=== PATIENT | male | born 1955 | race Caucasian/White ===

== ENCOUNTER 2017-08-09 13:00 | Outpatient (RCR) | payer OTHER, SELFPAY ==
--- NOTE | 2017-07-20 15:55 | PT.OTN ---
Current Diagnoses Pain in right shoulder (07/19/17) Physical Therapy Treatment Note PT-OP-A Visit Information Start: 07/20/17 15:42 Freq: Status: Active Protocol: Document 07/20/17 15:43 [facility] (Rec: 07/20/17 15:47 [facility] [email or web address]) Out-Patient Physical Therapy Visit Information Visit Information Visit Type Treatment Note Visit Start Time 11:30 Visit Stop Time 12:15 Total Visit Minutes 45 Visit Number 7 Number of OUTSOLE CASER Visits 0 PT-OP-C Subjective Start: 07/20/17 15:42 Freq: Status: Active Protocol: Document 07/20/17 15:43 [facility] (Rec: 07/20/17 15:47 [facility] [email or web address]) OP-PT Subjective Patient Comments Patient Comments Judi reports that his shoulder is continuing to get better and ROM has improved. He feels the most pinching at end range flexion with arms close together Patient Reported Progress Improving PT-OP-Q Treatments Start: 07/20/17 15:42 Freq: Status: Active Protocol: Document 07/20/17 15:43 [facility] (Rec: 07/20/17 15:47 [facility] [email or web address]) Cardio Equipment Upper Body Ergometer (UBE) Duration (Minutes) 5 RPM 110 Therapeutic Exercises Sidelying Exercises 1 Sidelying Exercise Name sleeper stretch Side left Standing Exercises 2 Standing Exercise Name posterior shoulder capsule stretch Side right 1 Standing Exercise Name wall slides with posterior capsule stretch Side right Manual Therapy Treatment Joint Mobilizations 2 Joint thoracic joint mobilizations Grade III Body Position Prone 1 Joint GH joint Grade III Body Position Supine Comments posterior, inferior and lateral capsule mobilizations Manual Techniques 1 Type manual end range stretching into ER and flexion Body Location right shoulder Body Position Supine PT-OP-T Assessment and Plan Start: 07/20/17 15:42 Freq: Status: Active Protocol: Document 07/19/17 15:49 [facility] (Rec: 07/20/17 15:52 [facility] [email or web address]) Physical Therapy Assessment Assessment Summary Assessment Judi is making good progress, he is still limited with IR and I emphasized the sleeper stretch and posterior capsule stretch for HEP, overall pain is decreased and ROM improved Physical Therapy Plan Frequency and Duration Frequency of Treatment Every Other Week Duration of Treatment 45 Plan of Care Start Date 05/17/17 Plan of Care End Date 08/14/17 Therapeutic Interventions Therapeutic Interventions Home Exercise Program Manual Therapy Self-Care/Home Management Soft Tissue Mobilization Therapeutic Exercises Next Visit Focus/Plan Next Visit Plan continue progressing posterior capsule stretching for improved ROM of the right shoulder
--- NOTE | 2017-08-09 14:13 | PT.OTN ---
Current Diagnoses Pain in right shoulder (08/09/17) Physical Therapy Treatment Note PT-OP-A Visit Information Start: 07/20/17 15:42 Freq: Status: Active Protocol: Document 08/09/17 14:00 [facility] (Rec: 08/09/17 14:12 [email or web address] Out-Patient Physical Therapy Visit Information Visit Information Visit Type Progress Note Visit Start Time 13:00 Visit Stop Time 13:40 Total Visit Minutes 40 Visit Number 8 PT-OP-C Subjective Start: 07/20/17 15:42 Freq: Status: Active Protocol: Document 08/09/17 14:00 [facility] (Rec: 08/09/17 14:12 [facility] [email or web address]) OP-PT Subjective Patient Comments Patient Comments Overall the shoulder is doing better but he still feels like some days he is set back or will be sore and others he has more ROM but overall motion has improved PT-OP-Q Treatments Start: 07/20/17 15:42 Freq: Status: Active Protocol: Document 08/09/17 14:00 [facility] (Rec: 08/09/17 14:12 [facility] [email or web address]) Cardio Equipment Upper Body Ergometer (UBE) Duration (Minutes) 5 RPM 110 Therapeutic Exercises Sitting Exercises 1 Sitting Exercise Name shoulder kitty with manual stretch of the capsule Comments posterior and inferior glide with active ROM Manual Therapy Treatment Soft Tissue Mobilization 1 Body Location subscapularis release Joint Mobilizations 2 Joint thoracic joint mobilizations Grade III Body Position Prone 1 Joint GH joint Grade III Body Position Supine Comments posterior, inferior and lateral capsule mobilizations Manual Techniques 1 Type manual end range stretching into ER and flexion Body Location right shoulder Body Position Supine PT-OP-T Assessment and Plan Start: 07/20/17 15:42 Freq: Status: Active Protocol: Document 08/09/17 14:00 [facility] (Rec: 08/09/17 14:12 [facility] [email or web address]) Physical Therapy Assessment Progress Towards Goals Progress Towards Goals Progressing Toward Goals Progress Comments Judi has made good progress towards his goals with shoulder ROM and improving flexiblity, His shoulder flexion improved from 90deg to 140 deg, abduction from 90 degrees to 130 deg, ER from 30 to 60 deg, IR from 20 to 55 deg. His flexibility of both the pectoralis and upper trapezius is much better overall. Strength is generally 5/5 MMT I feel he was dealing with adhesive capsulitis type symptoms and although his shoulder is not 100% improved it is much better. Judi will continue to work on his stretches and exercises and will follow up with his doctor should her need any additional care. Physical Therapy Plan Discharge Physical Therapy Discharge Comments Judi has made good gains with shoulder ROM and he is independent with a home program at this time to continue stretching Please Sign and Return: I have reviewed this Plan of Care and certify that the skilled therapy services above are required to meet the patient?s needs. Physician Signature Date Printed Name and Credentials Clinical Instructor Signature Printed Name and Credentials
== END 2017-08-23 15:53 ==
LOC: PHYS 13:00
PROVIDERS: Family Provider Family Medicine; PCP Family Medicine; Visit Provider Family Medicine
DX: M25.511 Pain in right shoulder (principal)
CPT/HCPCS: 97110; 97140

== ENCOUNTER → 2017-11-09 10:46 | Outpatient (CLI) | payer OTHER, SELFPAY | PROVIDERS: Family Provider Family Medicine; PCP Family Medicine; Visit Provider Family Medicine | DX: R20.2 Paresthesia of skin (principal) | CPT/HCPCS: 95886; 95909 ==

== ENCOUNTER 2018-01-30 10:30 | Outpatient (RCR) | payer OTHER, SELFPAY ==
--- NOTE | 2017-12-13 09:32 | PT.OIE ---
Current Diagnoses Dorsalgia, unspecified (12/12/17) Unspecified rotator cuff tear or rupture of right shoulder, not specified as traumatic (12/12/17) Paresthesia of skin (12/12/17) Provider Visit Care Team Role Provider Type Mahendra Love MD Family Provider Physician Primary Care Provider Specialty: [facility] Address: [address] [place] [address], [id number] Email: Kirk Coppola MD Attending Provider Physician Specialty: [facility] Address: [facility] [place], [address] Email: [email or web address] Physical Therapy Initial Evaluation PT-OP-A Visit Information Start: 12/13/17 09:04 Freq: Status: Active Protocol: Document 12/12/17 09:05 [facility] (Rec: 12/13/17 09:30 [facility] [email or web address]) Out-Patient Physical Therapy Visit Information Visit Information Visit Type Initial Evaluation Visit Start Time 11:15 Visit Stop Time 12:00 Total Visit Minutes 45 Visit Number 1 Evaluation Information Evaluation Date 12/12/17 PT-OP-B Current Condition Start: 12/13/17 09:04 Freq: Status: Active Protocol: Document 12/12/17 09:05 [facility] (Rec: 12/13/17 09:30 [facility] [email or web address]) Current Condition History of Current Condition Onset Date 2-3 months ago Current Complaints c/o radicular symptoms in the distal right arm and hand History of Current Condition Judi has previously been seen in PT for decreased shoulder ROM and stiffness. Treatment worked on improving thoracic mobility, stabilization of the shoulder and working on improved capsular mobility of the right shoulder. Judi reports after he was discharged from PT this past summer he continued to work on his stretches and he began noticing right sided tingling into his hand. He notes he will at times get tingling into his forearm as well. He did undergo a EMG nerve conduction test and this came back negative for any nerve damage. Treatment Goals Patient/Caregiver Goals to decrease radicular symptoms PT-OP-C Subjective Start: 12/13/17 09:04 Freq: Status: Active Protocol: Document 12/12/17 09:05 [facility] (Rec: 12/13/17 09:30 [facility] [email or web address]) OP-PT Pain Assessment Location Right Neck Pain Location Details R c-spine and R superior border of scapula Intensity 3 Scale Used Numeric (1 - 10) PT-OP-F Manual Assessment Start: 12/13/17 09:04 Freq: Status: Active Protocol: Document 12/12/17 09:05 [facility] (Rec: 12/13/17 09:30 [facility] [email or web address]) Manual Assessments Soft Tissue Assessment Soft Tissue Mobility Assessment Judi has a great deal of tightness bilaterally in the upper trapezius and scalenes, he has right greater than left tightness in the SCM and pectoralis musculature. Palpation at the first rib on the right reproduces his radicular symptoms Joint Mobility Assessment Joint Mobility Assessment hypomobility of the upper thoracic and lower cervical spine, hyper mobility of the C4-5 joint. Palpation at the right C5 facet joint reproduces symptoms into the right hand PT-OP-J Posture/Palpation/Skin Start: 12/13/17 09:04 Freq: Status: Active Protocol: Document 12/12/17 09:05 [facility] (Rec: 12/13/17 09:30 [facility] [email or web address]) Posture Evaluation Position Standing Head/C-Spine Posture Excess Extension Comments Posture Comments Judi tends to hold his head in slight cervical extension at the C4-5 joint PT-OP-K Range of Motion Start: 12/13/17 09:04 Freq: Status: Active Protocol: Document 12/12/17 09:05 [facility] (Rec: 12/13/17 09:30 [facility] [email or web address]) Cervical Spine Range of Motion Cervical Spine Active Testing Position Sitting Flexion 60 Extension 20 Rotation Left 40 Rotation Right 50 Lateral Flexion Left 10 Lateral Flexion Right 10 PT-OP-L Special Tests Start: 12/13/17 09:31 Freq: Status: Active Protocol: Document 12/12/17 09:31 [facility] (Rec: 12/13/17 09:32 [facility] [email or web address]) Special Tests Cervical Spine Special Tests Upper Limb Tension Test Test Results + ULTT 1 and 3 for median and radial nerve tightness on the Right PT-OP-Q Treatments Start: 12/13/17 09:04 Freq: Status: Active Protocol: Document 12/12/17 09:05 [facility] (Rec: 12/13/17 09:30 [facility] [email or web address]) Therapeutic Exercises Supine Exercises 2 Supine Exercise Name cervical retraction in supine and sitting 1 Supine Exercise Name suboccipital release for home with two tennis balls Reps/Minutes 2-3 minutes PT-OP-T Assessment and Plan Start: 12/13/17 09:04 Freq: Status: Active Protocol: Document 12/12/17 09:05 [facility] (Rec: 12/13/17 09:30 [facility] [email or web address]) Physical Therapy Assessment Goals Four Impairment radicular symptoms into the right hand and forearm Halfway Goal (LTG) With manual therapy techniques , cervical traction and a exercise program Judi notes a overall reduction in his radicular symptoms into his right forearm and hand. LTG Duration 8 weeks Three Impairment + ULTT 1 and 3 on the right for median and radial nerve Halfway Goal (LTG) improve nerve mobility and Judi has a negative ULTT on the right as compared to the left LTG Duration 8 weeks Two Impairment myofascial restrictions throughout the suboccipitals, upper trapezius, SCM Sales Service Rep Goal (LTG) Improve mobility of the musculature of the cervical and thoracic spine to decrease compression of the nerve reducing radicular symptoms LTG Duration 8 weeks One Impairment increased cervical extension at C4-5 Short Term Goal (STG) Judi is educated on his posture with increased cervical extension and is educated in a chin retraction exercise especially when using his bifocals as he tends to tilt his chin forward to look through his glasses STG Duration 6 weeks Assessment Summary Assessment Judi returns to PT today with new symptoms of right sided radicular pain into the right superior border of the scapula and intermittent tingling into his right hand and forearm. His symptoms in the scapula seem to be dermatome related from C4-5 region on the right. I was able to reproduce his hand symptoms with both palpation to the C4-5 on the right as well as a first rib mobilization. He is very tight in his myofascial tissue in the neck region and he may have some thoracic outlet type symptoms. He may benefit from a trial of home traction, manual therapy to reduce tension in the neck, and exercises to reduce the cervical extension at C4-5 region. He may also benefit from regular deep tissue massage as he tends to carry a great deal of tightness in his neck and upp back region. I will send over a referral for a home rental cervical traction unit. Physical Therapy Plan Frequency and Duration Frequency of Treatment 2x/Week Duration of Treatment 8 weeks Plan of Care Start Date 12/12/17 Plan of Care End Date 02/06/18 Therapeutic Interventions Therapeutic Interventions Home Exercise Program Joint Mobilizations Manual Therapy Patient/Caregiver Education Self-Care/Home Management Soft Tissue Mobilization Therapeutic Exercises
--- NOTE | 2017-12-13 09:37 | PT.OIE ---
Current Diagnoses Dorsalgia, unspecified (12/12/17) Unspecified rotator cuff tear or rupture of right shoulder, not specified as traumatic (12/12/17) Paresthesia of skin (12/12/17) Provider Visit Care Team Role Provider Type Mahendra Love MD Family Provider Physician Primary Care Provider Specialty: [facility] Address: [address] [place] [address], [id number] Email: Kirk Coppola MD Attending Provider Physician Specialty: [facility] Address: [facility] [place], [address] Email: [email or web address] Physical Therapy Initial Evaluation PT-OP-A Visit Information Start: 12/13/17 09:04 Freq: Status: Active Protocol: Document 12/12/17 09:05 [facility] (Rec: 12/13/17 09:30 [facility] [email or web address]) Out-Patient Physical Therapy Visit Information Visit Information Visit Type Initial Evaluation Visit Start Time 11:15 Visit Stop Time 12:00 Total Visit Minutes 45 Visit Number 1 Evaluation Information Evaluation Date 12/12/17 PT-OP-B Current Condition Start: 12/13/17 09:04 Freq: Status: Active Protocol: Document 12/12/17 09:05 [facility] (Rec: 12/13/17 09:30 [facility] [email or web address]) Current Condition History of Current Condition Onset Date 2-3 months ago Current Complaints c/o radicular symptoms in the distal right arm and hand History of Current Condition Judi has previously been seen in PT for decreased shoulder ROM and stiffness. Treatment worked on improving thoracic mobility, stabilization of the shoulder and working on improved capsular mobility of the right shoulder. Judi reports after he was discharged from PT this past summer he continued to work on his stretches and he began noticing right sided tingling into his hand. He notes he will at times get tingling into his forearm as well. He did undergo a EMG nerve conduction test and this came back negative for any nerve damage. Treatment Goals Patient/Caregiver Goals to decrease radicular symptoms PT-OP-C Subjective Start: 12/13/17 09:04 Freq: Status: Active Protocol: Document 12/12/17 09:05 [facility] (Rec: 12/13/17 09:30 [facility] [email or web address]) OP-PT Pain Assessment Location Right Neck Pain Location Details R c-spine and R superior border of scapula Intensity 3 Scale Used Numeric (1 - 10) PT-OP-F Manual Assessment Start: 12/13/17 09:04 Freq: Status: Active Protocol: Document 12/12/17 09:05 [facility] (Rec: 12/13/17 09:30 [facility] [email or web address]) Manual Assessments Soft Tissue Assessment Soft Tissue Mobility Assessment Judi has a great deal of tightness bilaterally in the upper trapezius and scalenes, he has right greater than left tightness in the SCM and pectoralis musculature. Palpation at the first rib on the right reproduces his radicular symptoms Joint Mobility Assessment Joint Mobility Assessment hypomobility of the upper thoracic and lower cervical spine, hyper mobility of the C4-5 joint. Palpation at the right C5 facet joint reproduces symptoms into the right hand PT-OP-J Posture/Palpation/Skin Start: 12/13/17 09:04 Freq: Status: Active Protocol: Document 12/12/17 09:05 [facility] (Rec: 12/13/17 09:30 [facility] [email or web address]) Posture Evaluation Position Standing Head/C-Spine Posture Excess Extension Comments Posture Comments Judi tends to hold his head in slight cervical extension at the C4-5 joint PT-OP-K Range of Motion Start: 12/13/17 09:04 Freq: Status: Active Protocol: Document 12/12/17 09:05 [facility] (Rec: 12/13/17 09:30 [facility] [email or web address]) Cervical Spine Range of Motion Cervical Spine Active Testing Position Sitting Flexion 60 Extension 20 Rotation Left 40 Rotation Right 50 Lateral Flexion Left 10 Lateral Flexion Right 10 PT-OP-L Special Tests Start: 12/13/17 09:31 Freq: Status: Active Protocol: Document 12/12/17 09:31 [facility] (Rec: 12/13/17 09:32 [facility] [email or web address]) Special Tests Cervical Spine Special Tests Upper Limb Tension Test Test Results + ULTT 1 and 3 for median and radial nerve tightness on the Right PT-OP-Q Treatments Start: 12/13/17 09:04 Freq: Status: Active Protocol: Document 12/12/17 09:05 [facility] (Rec: 12/13/17 09:30 [facility] [email or web address]) Therapeutic Exercises Supine Exercises 2 Supine Exercise Name cervical retraction in supine and sitting 1 Supine Exercise Name suboccipital release for home with two tennis balls Reps/Minutes 2-3 minutes PT-OP-T Assessment and Plan Start: 12/13/17 09:04 Freq: Status: Active Protocol: Document 12/12/17 09:05 [facility] (Rec: 12/13/17 09:30 [facility] [email or web address]) Physical Therapy Assessment Goals Four Impairment radicular symptoms into the right hand and forearm Long-Term Goal (LTG) With manual therapy techniques , cervical traction and a exercise program Judi notes a overall reduction in his radicular symptoms into his right forearm and hand. LTG Duration 8 weeks Three Impairment + ULTT 1 and 3 on the right for median and radial nerve Long-Term Goal (LTG) improve nerve mobility and Judi has a negative ULTT on the right as compared to the left LTG Duration 8 weeks Two Impairment myofascial restrictions throughout the suboccipitals, upper trapezius, SCM Director Translation Goal (LTG) Improve mobility of the musculature of the cervical and thoracic spine to decrease compresssion of the nerve reducing radicular symptoms LTG Duration 8 weeks One Impairment increased cervical extension at C4-5 Short Term Goal (STG) Judi is educated on his posture with increased cervical extension and is educated in a chin retraction exercise especially when using his bifocals as he tends to tilt his chin forward to look through his glasses STG Duration 6 weeks Assessment Summary Assessment Judi returns to PT today with new symptoms of right sided radicular pain into the right superior border of the scapula and intermitent tingling into his right hand and forearm. His symptoms in the scapula seem to be dermatome related from C4-5 region on the right. I was able to reproduce his hand symptoms with both palpation to the C4-5 on the right as well as a first rib mobilization. He is very tight in his myofascial tissue in the neck region and he may have some thoracic outlet type symptoms. He may benefit from a trial of home traction, manual therapy to reduce tension in the neck, and exercises to reduce the cervical extension at C4-5 region. We did do a trial of cervical traction at 20# and Judi tolerated this well. He may also benefit from regular deep tissue massage as he tends to carry a great deal of tightness in his neck and upp back region. I will send over a referral for a home rental cervical traction unit. Physical Therapy Plan Frequency and Duration Frequency of Treatment 2x/Week Duration of Treatment 8 weeks Plan of Care Start Date 12/12/17 Plan of Care End Date 02/06/18 Therapeutic Interventions Therapeutic Interventions Home Exercise Program Joint Mobilizations Manual Therapy Patient/Caregiver Education Self-Care/Home Management Soft Tissue Mobilization Therapeutic Exercises
--- NOTE | 2017-12-22 15:00 | PT.OTN ---
Current Diagnoses Dorsalgia, unspecified (12/22/17) Unspecified rotator cuff tear or rupture of right shoulder, not specified as traumatic (12/22/17) Paresthesia of skin (12/22/17) Physical Therapy Treatment Note PT-OP-A Visit Information Start: 12/13/17 09:04 Freq: Status: Active Protocol: Document 12/22/17 14:37 SA (Rec: 12/22/17 14:55 [facility] [email or web address]) Out-Patient Physical Therapy Visit Information Visit Information Visit Type Treatment Note Visit Start Time 09:45 Visit Stop Time 10:31 Total Visit Minutes 46 Visit Number 2 PT-OP-B Current Condition Start: 12/13/17 09:04 Freq: Status: Active Protocol: Document 12/12/17 09:05 [facility] (Rec: 12/13/17 09:30 [facility] [email or web address]) Current Condition History of Current Condition Onset Date 2-3 months ago Current Complaints c/o radicular symptoms in the distal right arm and hand History of Current Condition Judi has previously been seen in PT for decreased shoulder ROM and stiffness. Treatment worked on improving thoracic mobility, stabilization of the shoulder and working on improved capsular mobility of the right shoulder. Judi reports after he was discharged from PT this past summer he continued to work on his stretches and he began noticing right sided tingling into his hand. He notes he will at times get tingling into his forearm as well. He did undergo a EMG nerve conduction test and this came back negative for any nerve damage. Treatment Goals Patient/Caregiver Goals to decrease radicular symptoms PT-OP-C Subjective Start: 12/13/17 09:04 Freq: Status: Active Protocol: Document 12/22/17 14:37 SA (Rec: 12/22/17 14:55 [facility] [email or web address]) OP-PT Subjective Patient Comments Patient Comments Pt still having R scapular/ shoulder pain. OP-PT Pain Assessment Location Right Neck Pain Location Details R c-spine/Interscap and superior border Intensity 3 Scale Used Numeric (1 - 10) PT-OP-F Manual Assessment Start: 12/13/17 09:04 Freq: Status: Active Protocol: Document 12/12/17 09:05 [facility] (Rec: 12/13/17 09:30 [facility] [email or web address]) Manual Assessments Soft Tissue Assessment Soft Tissue Mobility Assessment Judi has a great deal of tightness bilaterally in the upper trapezius and scalenes, he has right greater than left tightness in the SCM and pectoralis musculature. Palpation at the first rib on the right reproduces his radicular symptoms Joint Mobility Assessment Joint Mobility Assessment hypomobility of the upper thoracic and lower cervical spine, hyper mobility of the C4-5 joint. Palpation at the right C5 facet joint reproduces symptoms into the right hand PT-OP-J Posture/Palpation/Skin Start: 12/13/17 09:04 Freq: Status: Active Protocol: Document 12/12/17 09:05 [facility] (Rec: 12/13/17 09:30 [facility] [email or web address]) Posture Evaluation Position Standing Head/C-Spine Posture Excess Extension Comments Posture Comments Judi tends to hold his head in slight cervical extension at the C4-5 joint PT-OP-K Range of Motion Start: 12/13/17 09:04 Freq: Status: Active Protocol: Document 12/12/17 09:05 [facility] (Rec: 12/13/17 09:30 [facility] [email or web address]) Cervical Spine Range of Motion Cervical Spine Active Testing Position Sitting Flexion 60 Extension 20 Rotation Left 40 Rotation Right 50 Lateral Flexion Left 10 Lateral Flexion Right 10 PT-OP-L Special Tests Start: 12/13/17 09:31 Freq: Status: Active Protocol: Document 12/12/17 09:31 [facility] (Rec: 12/13/17 09:32 [facility] [email or web address]) Special Tests Cervical Spine Special Tests Upper Limb Tension Test Test Results + ULTT 1 and 3 for median and radial nerve tightness on the Right PT-OP-Q Treatments Start: 12/13/17 09:04 Freq: Status: Active Protocol: Document 12/22/17 14:37 SA (Rec: 12/22/17 14:55 [facility] [email or web address]) Therapeutic Exercises Sitting Exercises Upper Trap stretching Side bilateral Reps/Minutes 30 seconds x 3 Seated cervical retraction Reps/Minutes 20 Manual Therapy Treatment Soft Tissue Mobilization STM to R upper traps, scalenes, Interscapular area Mobilization Type Myofascial Release Rolling Trigger Point Release Intensity/Depth Moderate Body Position Sidelying Manual Traction cervical traction Details c spine Body Position Supine Comments Pt tolerated well, prefers manual tracteion vs mechanical . PROM to c-spine with L rotation and sidebend relieving R redicualar symptoms. PT-OP-T Assessment and Plan Start: 12/13/17 09:04 Freq: Status: Active Protocol: Document 12/22/17 14:55 SA (Rec: 12/22/17 14:59 [facility] [email or web address]) Physical Therapy Plan Frequency and Duration Frequency of Treatment 2x/Week Next Visit Focus/Plan Next Note Type Treatment Note Next Visit Plan Assess pt response to Upper trap stretching, chin tucks and cervical traction. Handout /education provided for work station set up/ergonomic to help minimize impingment positioning. Review of correct posture.
--- NOTE | 2018-01-10 11:07 | PT.OTN ---
Current Diagnoses Dorsalgia, unspecified (01/10/18) Unspecified rotator cuff tear or rupture of right shoulder, not specified as traumatic (01/10/18) Paresthesia of skin (01/10/18) Physical Therapy Treatment Note PT-OP-A Visit Information Start: 12/13/17 09:04 Freq: Status: Active Protocol: Document 01/10/18 11:00 [facility] (Rec: 01/10/18 11:06 [facility] [email or web address]) Out-Patient Physical Therapy Visit Information Visit Information Visit Type Treatment Note Visit Start Time 10:00 Visit Stop Time 10:55 Total Visit Minutes 55 Visit Number 3 Number of BRAZER INDUCTION Visits 0 Evaluation Information Evaluation Date 12/12/17 PT-OP-B Current Condition Start: 12/13/17 09:04 Freq: Status: Active Protocol: Document 12/12/17 09:05 [facility] (Rec: 12/13/17 09:30 [facility] [email or web address]) Current Condition History of Current Condition Onset Date 2-3 months ago Current Complaints c/o radicular symptoms in the distal right arm and hand History of Current Condition Judi has previously been seen in PT for decreased shoulder ROM and stiffness. Treatment worked on improving thoracic mobility, stabilization of the shoulder and working on improved capsular mobility of the right shoulder. Judi reports after he was discharged from PT this past summer he continued to work on his stretches and he began noticing right sided tingling into his hand. He notes he will at times get tingling into his forearm as well. He did undergo a EMG nerve conduction test and this came back negative for any nerve damage. Treatment Goals Patient/Caregiver Goals to decrease radicular symptoms PT-OP-C Subjective Start: 12/13/17 09:04 Freq: Status: Active Protocol: Document 01/10/18 11:00 [facility] (Rec: 01/10/18 11:06 [facility] [email or web address]) OP-PT Subjective Patient Comments Patient Comments Judi notes symptoms are a little better and he has been working a lot on stretching. It helped to have work done on the right scapula region last time PT-OP-F Manual Assessment Start: 12/13/17 09:04 Freq: Status: Active Protocol: Document 12/12/17 09:05 [facility] (Rec: 12/13/17 09:30 [facility] [email or web address]) Manual Assessments Soft Tissue Assessment Soft Tissue Mobility Assessment Judi has a great deal of tightness bilaterally in the upper trapezius and scalenes, he has right greater than left tightness in the SCM and pectoralis musculature. Palpation at the first rib on the right reproduces his radicular symptoms Joint Mobility Assessment Joint Mobility Assessment hypomobility of the upper thoracic and lower cervical spine, hyper mobility of the C4-5 joint. Palpation at the right C5 facet joint reproduces symptoms into the right hand PT-OP-J Posture/Palpation/Skin Start: 12/13/17 09:04 Freq: Status: Active Protocol: Document 12/12/17 09:05 [facility] (Rec: 12/13/17 09:30 [facility] [email or web address]) Posture Evaluation Position Standing Head/C-Spine Posture Excess Extension Comments Posture Comments Judi tends to hold his head in slight cervical extension at the C4-5 joint PT-OP-K Range of Motion Start: 12/13/17 09:04 Freq: Status: Active Protocol: Document 12/12/17 09:05 [facility] (Rec: 12/13/17 09:30 [facility] [email or web address]) Cervical Spine Range of Motion Cervical Spine Active Testing Position Sitting Flexion 60 Extension 20 Rotation Left 40 Rotation Right 50 Lateral Flexion Left 10 Lateral Flexion Right 10 PT-OP-L Special Tests Start: 12/13/17 09:31 Freq: Status: Active Protocol: Document 12/12/17 09:31 [facility] (Rec: 12/13/17 09:32 [facility] [email or web address]) Special Tests Cervical Spine Special Tests Upper Limb Tension Test Test Results + ULTT 1 and 3 for median and radial nerve tightness on the Right PT-OP-Q Treatments Start: 12/13/17 09:04 Freq: Status: Active Protocol: Document 01/10/18 11:00 [facility] (Rec: 01/10/18 11:06 [facility] [email or web address]) Manual Therapy Treatment Soft Tissue Mobilization STM to R upper traps, scalenes, Interscapular area Mobilization Type Myofascial Release Rolling Trigger Point Release Intensity/Depth Moderate Body Position Sidelying 1 Body Location subscapularis release Joint Mobilizations 2 Joint thoracic joint mobilizations Grade III Body Position Prone Manual Traction cervical traction Details c spine Body Position Supine Comments Pt tolerated well, prefers manual traction vs mechanical. Decrased radicular symptoms following Manual Techniques 1 Type suboccipital release PT-OP-R Modalities Start: 01/10/18 11:06 Freq: Status: Active Protocol: Document 11/07/18 11:06 [facility] (Rec: 01/10/18 11:07 [facility] [email or web address]) Ultrasound Therapy Treatment Right Medial Back Applicator Size (cm2) 5 Mode Setting Continuous Duty Cycle 100% Intensity Setting (w/cm2) 1.5 Comments right medial scapula border and levator scapula attachment PT-OP-T Assessment and Plan Start: 12/13/17 09:04 Freq: Status: Active Protocol: Document 01/10/18 11:00 [facility] (Rec: 01/10/18 11:06 [facility] [email or web address]) Physical Therapy Assessment Assessment Summary Assessment Good tolerance today for manual work and decreasing radicular symptoms following manual work. Improved mobility with ULTT 1 and 3, tightness along the medial scapula border and T-spine Physical Therapy Plan Frequency and Duration Frequency of Treatment 2x/Week Duration of Treatment 8 weeks Plan of Care Start Date 12/12/17 Plan of Care End Date 02/06/18 Therapeutic Interventions Therapeutic Interventions Home Exercise Program Joint Mobilizations Manual Therapy Patient/Caregiver Education Self-Care/Home Management Soft Tissue Mobilization Therapeutic Exercises Next Visit Focus/Plan Next Note Type Treatment Note Next Visit Plan continue to work on improved thoracic mobility as Judi can tolerate. Possible trial of home traction rental unit.
--- NOTE | 2018-01-16 12:44 | PT.OTN ---
Current Diagnoses Dorsalgia, unspecified (01/16/18) Unspecified rotator cuff tear or rupture of right shoulder, not specified as traumatic (01/16/18) Paresthesia of skin (01/16/18) Physical Therapy Treatment Note PT-OP-A Visit Information Start: 12/13/17 09:04 Freq: Status: Active Protocol: Document 01/16/18 12:37 [facility] (Rec: 01/16/18 12:44 [facility] [email or web address]) Out-Patient Physical Therapy Visit Information Visit Information Visit Type Treatment Note Visit Start Time 09:00 Visit Stop Time 09:45 Total Visit Minutes 55 Visit Number 4 Number of SCOOP DRIVER Visits 0 PT-OP-B Current Condition Start: 12/13/17 09:04 Freq: Status: Active Protocol: Document 12/12/17 09:05 [facility] (Rec: 12/13/17 09:30 [facility] [email or web address]) Current Condition History of Current Condition Onset Date 2-3 months ago Current Complaints c/o radicular symptoms in the distal right arm and hand History of Current Condition Judi has previously been seen in PT for decreased shoulder ROM and stiffness. Treatment worked on improving thoracic mobility, stabilization of the shoulder and working on improved capsular mobility of the right shoulder. Judi reports after he was discharged from PT this past summer he continued to work on his stretches and he began noticing right sided tingling into his hand. He notes he will at times get tingling into his forearm as well. He did undergo a EMG nerve conduction test and this came back negative for any nerve damage. Treatment Goals Patient/Caregiver Goals to decrease radicular symptoms PT-OP-C Subjective Start: 12/13/17 09:04 Freq: Status: Active Protocol: Document 01/16/18 12:37 [facility] (Rec: 01/16/18 12:44 [facility] [email or web address]) OP-PT Subjective Patient Comments Patient Comments Judi reports he did better following last visit and felt much looser. He is still feeling the tingling down his right hand but it is not as bad as it was Patient Reported Progress Improving PT-OP-F Manual Assessment Start: 12/13/17 09:04 Freq: Status: Active Protocol: Document 12/12/17 09:05 [facility] (Rec: 12/13/17 09:30 [facility] [email or web address]) Manual Assessments Soft Tissue Assessment Soft Tissue Mobility Assessment Judi has a great deal of tightness bilaterally in the upper trapezius and scalenes, he has right greater than left tightness in the SCM and pectoralis musculature. Palpation at the first rib on the right reproduces his radicular symptoms Joint Mobility Assessment Joint Mobility Assessment hypomobility of the upper thoracic and lower cervical spine, hyper mobility of the C4-5 joint. Palpation at the right C5 facet joint reproduces symptoms into the right hand PT-OP-J Posture/Palpation/Skin Start: 12/13/17 09:04 Freq: Status: Active Protocol: Document 12/12/17 09:05 [facility] (Rec: 12/13/17 09:30 [facility] [email or web address]) Posture Evaluation Position Standing Head/C-Spine Posture Excess Extension Comments Posture Comments uJdi tends to hold his head in slight cervical extension at the C4-5 joint PT-OP-K Range of Motion Start: 12/13/17 09:04 Freq: Status: Active Protocol: Document 12/12/17 09:05 [facility] (Rec: 12/13/17 09:30 [facility] [email or web address]) Cervical Spine Range of Motion Cervical Spine Active Testing Position Sitting Flexion 60 Extension 20 Rotation Left 40 Rotation Right 50 Lateral Flexion Left 10 Lateral Flexion Right 10 PT-OP-L Special Tests Start: 12/13/17 09:31 Freq: Status: Active Protocol: Document 12/12/17 09:31 [facility] (Rec: 12/13/17 09:32 [facility] [email or web address]) Special Tests Cervical Spine Special Tests Upper Limb Tension Test Test Results + ULTT 1 and 3 for median and radial nerve tightness on the Right PT-OP-Q Treatments Start: 12/13/17 09:04 Freq: Status: Active Protocol: Document 01/16/18 12:37 [facility] (Rec: 01/16/18 12:44 [facility] [email or web address]) Manual Therapy Treatment Soft Tissue Mobilization STM to R upper traps, scalenes, Interscapular area Mobilization Type Myofascial Release Rolling Trigger Point Release Intensity/Depth Moderate Body Position Sidelying 1 Body Location subscapularis release Joint Mobilizations 2 Joint thoracic joint mobilizations Grade III Body Position Prone Manual Traction cervical traction Details c spine Body Position Supine Comments Pt tolerated well, prefers manual traction vs mechanical. Decrased radicular symptoms following Manual Techniques 1 Type suboccipital release PT-OP-R Modalities Start: 01/10/18 11:06 Freq: Status: Active Protocol: Document 01/10/18 11:06 [facility] (Rec: 01/10/18 11:07 [facility] [email or web address]) Ultrasound Therapy Treatment Right Medial Back Applicator Size (cm2) 5 Mode Setting Continuous Duty Cycle 100% Intensity Setting (w/cm2) 1.5 Comments right medial scapula border and levator scapula attachment PT-OP-T Assessment and Plan Start: 12/13/17 09:04 Freq: Status: Active Protocol: Document 01/16/18 12:37 [facility] (Rec: 01/16/18 12:44 [facility] [email or web address]) Physical Therapy Assessment Assessment Summary Assessment Judi is responding well to treatment and had improved thoracic mobility today. He is also gaining flexibility in the right pectoralis musculature Physical Therapy Plan Frequency and Duration Frequency of Treatment 2x/Week Duration of Treatment 8 weeks Plan of Care Start Date 12/12/17 Plan of Care End Date 02/06/18 Therapeutic Interventions Therapeutic Interventions Home Exercise Program Joint Mobilizations Manual Therapy Patient/Caregiver Education Self-Care/Home Management Soft Tissue Mobilization Therapeutic Exercises Next Visit Focus/Plan Next Note Type Treatment Note Next Visit Plan continue to work on nerve gliding and thoracic mobility, manual traction Judi tolerates well. Work station set up as he notes after using his mouse he can have carple tunnel symptoms
--- NOTE | 2018-01-24 13:48 | PT.OTN ---
Current Diagnoses Dorsalgia, unspecified (01/24/18) Unspecified rotator cuff tear or rupture of right shoulder, not specified as traumatic (01/24/18) Paresthesia of skin (01/24/18) Physical Therapy Treatment Note PT-OP-A Visit Information Start: 12/13/17 09:04 Freq: Status: Active Protocol: Document 01/24/18 13:40 [facility] (Rec: 01/24/18 13:48 [facility] [email or web address]) Out-Patient Physical Therapy Visit Information Visit Information Visit Type Treatment Note Visit Start Time 10:45 Visit Stop Time 11:30 Total Visit Minutes 45 Visit Number 5 Number of SPECK DYER Visits 0 Evaluation Information Evaluation Date 12/12/17 PT-OP-B Current Condition Start: 12/13/17 09:04 Freq: Status: Active Protocol: Document 12/12/17 09:05 [facility] (Rec: 12/13/17 09:30 [facility] [email or web address]) Current Condition History of Current Condition Onset Date 2-3 months ago Current Complaints c/o radicular symptoms in the distal right arm and hand History of Current Condition Judi has previously been seen in PT for decreased shoulder ROM and stiffness. Treatment worked on improving thoracic mobility, stabilization of the shoulder and working on improved capsular mobility of the right shoulder. Judi reports after he was discharged from PT this past summer he continued to work on his stretches and he began noticing right sided tingling into his hand. He notes he will at times get tingling into his forearm as well. He did undergo a EMG nerve conduction test and this came back negative for any nerve damage. Treatment Goals Patient/Caregiver Goals to decrease radicular symptoms PT-OP-C Subjective Start: 12/13/17 09:04 Freq: Status: Active Protocol: Document 01/24/18 13:40 [facility] (Rec: 01/24/18 13:48 [facility] [email or web address]) OP-PT Subjective Patient Comments Patient Comments Judi reports he is doing better, decreasing c/o right sided radicular symptoms. Had a deep tissue massage too and notes this helped as well. Patient Reported Progress Improving PT-OP-F Manual Assessment Start: 12/13/17 09:04 Freq: Status: Active Protocol: Document 12/12/17 09:05 [facility] (Rec: 12/13/17 09:30 [facility] [email or web address]) Manual Assessments Soft Tissue Assessment Soft Tissue Mobility Assessment Judi has a great deal of tightness bilaterally in the upper trapezius and scalenes, he has right greater than left tightness in the SCM and pectoralis musculature. Palpation at the first rib on the right reproduces his radicular symptoms Joint Mobility Assessment Joint Mobility Assessment hypomobility of the upper thoracic and lower cervical spine, hyper mobility of the C4-5 joint. Palpation at the right C5 facet joint reproduces symptoms into the right hand PT-OP-J Posture/Palpation/Skin Start: 12/13/17 09:04 Freq: Status: Active Protocol: Document 12/12/17 09:05 [facility] (Rec: 12/13/17 09:30 [facility] [email or web address]) Posture Evaluation Position Standing Head/C-Spine Posture Excess Extension Comments Posture Comments Judi tends to hold his head in slight cervical extension at the C4-5 joint PT-OP-K Range of Motion Start: 12/13/17 09:04 Freq: Status: Active Protocol: Document 12/12/17 09:05 [facility] (Rec: 12/13/17 09:30 [facility] [email or web address]) Cervical Spine Range of Motion Cervical Spine Active Testing Position Sitting Flexion 60 Extension 20 Rotation Left 40 Rotation Right 50 Lateral Flexion Left 10 Lateral Flexion Right 10 PT-OP-L Special Tests Start: 12/13/17 09:31 Freq: Status: Active Protocol: Document 12/12/17 09:31 [facility] (Rec: 12/13/17 09:32 [facility] [email or web address]) Special Tests Cervical Spine Special Tests Upper Limb Tension Test Test Results + ULTT 1 and 3 for median and radial nerve tightness on the Right PT-OP-Q Treatments Start: 12/13/17 09:04 Freq: Status: Active Protocol: Document 01/24/18 13:40 [facility] (Rec: 01/24/18 13:48 [facility] [email or web address]) Therapeutic Exercises Supine Exercises 3 Supine Exercise Name foam roll stretch Prone Exercises 1 Prone Exercise Name prone thoracic extension with chin tuck Manual Therapy Treatment Soft Tissue Mobilization STM to R upper traps, scalenes, Interscapular area Mobilization Type Myofascial Release Rolling Trigger Point Release Intensity/Depth Moderate Body Position Sidelying 1 Body Location subscapularis release Joint Mobilizations 2 Joint thoracic joint mobilizations Grade III Body Position Prone Manual Traction cervical traction Details c spine Body Position Supine Comments Pt tolerated well, prefers manual traction vs mechanical. Decrased radicular symptoms following Manual Techniques 2 Type nerve glides Comments medial, radial, and ulnar 1 Type suboccipital release PT-OP-R Modalities Start: 01/10/18 11:06 Freq: Status: Active Protocol: Document 01/10/18 11:06 [facility] (Rec: 01/10/18 11:07 [facility] [email or web address]) Ultrasound Therapy Treatment Right Medial Back Applicator Size (cm2) 5 Mode Setting Continuous Duty Cycle 100% Intensity Setting (w/cm2) 1.5 Comments right medial scapula border and levator scapula attachment PT-OP-T Assessment and Plan Start: 12/13/17 09:04 Freq: Status: Active Protocol: Document 01/24/18 13:40 [facility] (Rec: 01/24/18 13:48 [facility] [email or web address]) Physical Therapy Assessment Assessment Summary Assessment full ULTT today with nerve glides and no c/o radicular symptoms. Symptoms were not reproduced today with treatment Physical Therapy Plan Frequency and Duration Frequency of Treatment 2x/Week Duration of Treatment 8 weeks Plan of Care Start Date 12/12/17 Plan of Care End Date 02/06/18 Therapeutic Interventions Therapeutic Interventions Home Exercise Program Joint Mobilizations Manual Therapy Patient/Caregiver Education Self-Care/Home Management Soft Tissue Mobilization Therapeutic Exercises Next Visit Focus/Plan Next Note Type Treatment Note Next Visit Plan continue to work on nerve gliding and thoracic mobility, work into the forarm musculature to release any nerve entrapement here
--- NOTE | 2018-01-31 14:51 | PT.OTN ---
Current Diagnoses Dorsalgia, unspecified (01/30/18) Unspecified rotator cuff tear or rupture of right shoulder, not specified as traumatic (01/30/18) Paresthesia of skin (01/30/18) Physical Therapy Treatment Note PT-OP-A Visit Information Start: 12/13/17 09:04 Freq: Status: Active Protocol: Document 01/30/18 14:48 [facility] (Rec: 01/31/18 14:51 [facility] [email or web address]) Out-Patient Physical Therapy Visit Information Visit Information Visit Type Treatment Note Visit Start Time 10:30 Visit Stop Time 11:15 Total Visit Minutes 45 Visit Number 6 Number of FOREST TECHNICIAN Visits 0 Evaluation Information Evaluation Date 12/12/17 PT-OP-B Current Condition Start: 12/13/17 09:04 Freq: Status: Active Protocol: Document 12/12/17 09:05 [facility] (Rec: 12/13/17 09:30 [facility] [email or web address]) Current Condition History of Current Condition Onset Date 2-3 months ago Current Complaints c/o radicular symptoms in the distal right arm and hand History of Current Condition Judi has previously been seen in PT for decreased shoulder ROM and stiffness. Treatment worked on improving thoracic mobility, stabilization of the shoulder and working on improved capsular mobility of the right shoulder. Judi reports after he was discharged from PT this past summer he continued to work on his stretches and he began noticing right sided tingling into his hand. He notes he will at times get tingling into his forearm as well. He did undergo a EMG nerve conduction test and this came back negative for any nerve damage. Treatment Goals Patient/Caregiver Goals to decrease radicular symptoms PT-OP-C Subjective Start: 12/13/17 09:04 Freq: Status: Active Protocol: Document 01/30/18 14:48 [facility] (Rec: 01/31/18 14:51 [facility] [email or web address]) OP-PT Subjective Patient Comments Patient Comments Judi notes he may have slept wrong last night as he has more tingling again today into the right hand PT-OP-F Manual Assessment Start: 12/13/17 09:04 Freq: Status: Active Protocol: Document 12/12/17 09:05 [facility] (Rec: 12/13/17 09:30 [facility] [email or web address]) Manual Assessments Soft Tissue Assessment Soft Tissue Mobility Assessment Judi has a great deal of tightness bilaterally in the upper trapezius and scalenes, he has right greater than left tightness in the SCM and pectoralis musculature. Palpation at the first rib on the right reproduces his radicular symptoms Joint Mobility Assessment Joint Mobility Assessment hypomobility of the upper thoracic and lower cervical spine, hyper mobility of the C4-5 joint. Palpation at the right C5 facet joint reproduces symptoms into the right hand PT-OP-J Posture/Palpation/Skin Start: 12/13/17 09:04 Freq: Status: Active Protocol: Document 12/12/17 09:05 [facility] (Rec: 12/13/17 09:30 [facility] [email or web address]) Posture Evaluation Position Standing Head/C-Spine Posture Excess Extension Comments Posture Comments Judi tends to hold his head in slight cervical extension at the C4-5 joint PT-OP-K Range of Motion Start: 12/13/17 09:04 Freq: Status: Active Protocol: Document 12/12/17 09:05 [facility] (Rec: 12/13/17 09:30 [facility] [email or web address]) Cervical Spine Range of Motion Cervical Spine Active Testing Position Sitting Flexion 60 Extension 20 Rotation Left 40 Rotation Right 50 Lateral Flexion Left 10 Lateral Flexion Right 10 PT-OP-L Special Tests Start: 12/13/17 09:31 Freq: Status: Active Protocol: Document 12/12/17 09:31 [facility] (Rec: 12/13/17 09:32 [facility] [email or web address]) Special Tests Cervical Spine Special Tests Upper Limb Tension Test Test Results + ULTT 1 and 3 for median and radial nerve tightness on the Right PT-OP-Q Treatments Start: 12/13/17 09:04 Freq: Status: Active Protocol: Document 01/30/18 14:48 [facility] (Rec: 01/31/18 14:51 [facility] [email or web address]) Manual Therapy Treatment Soft Tissue Mobilization STM to R upper traps, scalenes, Interscapular area Mobilization Type Myofascial Release Rolling Trigger Point Release Intensity/Depth Moderate Body Position Sidelying 1 Body Location subscapularis release Joint Mobilizations 2 Joint thoracic joint mobilizations Grade III Body Position Prone Manual Traction cervical traction Details c spine Body Position Supine Comments Pt tolerated well, prefers manual traction vs mechanical. Decrased radicular symptoms following Manual Techniques 2 Type nerve glides Comments medial, radial, and ulnar 1 Type suboccipital release PT-OP-R Modalities Start: 01/10/18 11:06 Freq: Status: Active Protocol: Document 01/10/18 11:06 [facility] (Rec: 01/10/18 11:07 [facility] [email or web address]) Ultrasound Therapy Treatment Right Medial Back Applicator Size (cm2) 5 Mode Setting Continuous Duty Cycle 100% Intensity Setting (w/cm2) 1.5 Comments right medial scapula border and levator scapula attachment PT-OP-T Assessment and Plan Start: 12/13/17 09:04 Freq: Status: Active Protocol: Document 01/30/18 14:48 [facility] (Rec: 01/31/18 14:51 [facility] [email or web address]) Physical Therapy Assessment Assessment Summary Assessment symptoms were improved following treatment today. Discussed options for pillows and sleeping Physical Therapy Plan Frequency and Duration Frequency of Treatment 2x/Week Duration of Treatment 8 weeks Plan of Care Start Date 12/12/17 Plan of Care End Date 02/06/18 Next Visit Focus/Plan Next Note Type Treatment Note Next Visit Plan continue to work on nerve gliding and thoracic mobility, work into the forarm musculature to release any nerve entrapement here
--- NOTE | 2018-04-18 11:07 | PT.OPDS ---
Current Diagnoses Dorsalgia, unspecified (01/30/18) Unspecified rotator cuff tear or rupture of right shoulder, not specified as traumatic (01/30/18) Paresthesia of skin (01/30/18) Provider Visit Care Team Role Provider Type Mahendra Love MD Family Provider Physician Primary Care Provider Specialty: [facility] Address: [address] [place] [address], [id number] Email: Kirk Coppola MD Attending Provider Physician Specialty: [facility] Address: [facility] [place], [facility] Email: [email or web address] Visit Number Visit Number 6 Discharge Summary PT-OP-B Current Condition Start: 12/13/17 09:04 Freq: Status: Active Protocol: Document 12/12/17 09:05 [facility] (Rec: 12/13/17 09:30 [facility] [email or web address]) Current Condition History of Current Condition Onset Date 2-3 months ago Current Complaints c/o radicular symptoms in the distal right arm and hand History of Current Condition Judi has previously been seen in PT for decreased shoulder ROM and stiffness. Treatment worked on improving thoracic mobility, stabilization of the shoulder and working on improved capsular mobility of the right shoulder. Judi reports after he was discharged from PT this past summer he continued to work on his stretches and he began noticing right sided tingling into his hand. He notes he will at times get tingling into his forearm as well. He did undergo a EMG nerve conduction test and this came back negative for any nerve damage. Treatment Goals Patient/Caregiver Goals to decrease radicular symptoms PT-OP-C Subjective Start: 12/13/17 09:04 Freq: Status: Active Protocol: Document 01/30/18 14:48 [facility] (Rec: 01/31/18 14:51 [facility] [email or web address]) OP-PT Subjective Patient Comments Patient Comments Judi notes he may have slept wrong last night as he has more tingling again today into the right hand PT-OP-F Manual Assessment Start: 12/13/17 09:04 Freq: Status: Active Protocol: Document 12/12/17 09:05 [facility] (Rec: 12/13/17 09:30 [facility] [email or web address]) Manual Assessments Soft Tissue Assessment Soft Tissue Mobility Assessment Judi has a great deal of tightness bilaterally in the upper trapezius and scalenes, he has right greater than left tightness in the SCM and pectoralis musculature. Palpation at the first rib on the right reproduces his radicular symptoms Joint Mobility Assessment Joint Mobility Assessment hypomobility of the upper thoracic and lower cervical spine, hyper mobility of the C4-5 joint. Palpation at the right C5 facet joint reproduces symptoms into the right hand PT-OP-J Posture/Palpation/Skin Start: 12/13/17 09:04 Freq: Status: Active Protocol: Document 12/12/17 09:05 [facility] (Rec: 12/13/17 09:30 [facility] [email or web address]) Posture Evaluation Position Standing Head/C-Spine Posture Excess Extension Comments Posture Comments Judi tends to hold his head in slight cervical extension at the C4-5 joint PT-OP-K Range of Motion Start: 12/13/17 09:04 Freq: Status: Active Protocol: Document 12/12/17 09:05 [facility] (Rec: 12/13/17 09:30 [facility] [email or web address]) Cervical Spine Range of Motion Cervical Spine Active Testing Position Sitting Flexion 60 Extension 20 Rotation Left 40 Rotation Right 50 Lateral Flexion Left 10 Lateral Flexion Right 10 PT-OP-L Special Tests Start: 12/13/17 09:31 Freq: Status: Active Protocol: Document 12/12/17 09:31 [facility] (Rec: 12/13/17 09:32 [facility] [email or web address]) Special Tests Cervical Spine Special Tests Upper Limb Tension Test Test Results + ULTT 1 and 3 for median and radial nerve tightness on the Right PT-OP-T Assessment and Plan Start: 12/13/17 09:04 Freq: Status: Active Protocol: Document 04/18/18 11:05 [facility] (Rec: 04/18/18 11:07 [facility] [email or web address]) Physical Therapy Assessment Progress Towards Goals Progress Towards Goals Progressing Toward Goals Assessment Summary Assessment symptoms were improved following treatment today. Discussed options for pillows and sleeping. Judi has not made any further appointments following his visit. He will be discharged from PT at this time Physical Therapy Plan Discharge Physical Therapy Discharge Reasons No Longer Attending PT
== END 2018-04-30 15:20 ==
LOC: PHYS 10:30
PROVIDERS: Family Provider Family Medicine; PCP Family Medicine; Visit Provider Family Medicine
DX: R20.2 Paresthesia of skin (principal); M75.101 Unspecified rotator cuff tear or rupture of right shoulder, not specified as traumatic; M54.9 Dorsalgia, unspecified
CPT/HCPCS: 97035; 97110; 97140; 97161

== ENCOUNTER → 2018-05-07 17:02 | Outpatient (CLI) | payer OTHER, SELFPAY ==
--- NOTE | 2018-05-07 17:04 | DI.RAD.S_ITS ---
PROCEDURE: XR CERVICAL SPINE 2V OR 3V INDICATIONS: NECK PAIN TECHNIQUE: 3 view(s) of the cervical spine were acquired. COMPARISON: None. FINDINGS: Bones: No fractures or dislocations to the C7 level. The lateral masses of C1 appear intact on the odontoid view. No suspicious bony lesions. Soft tissues: No prevertebral soft tissue swelling. IMPRESSION: Normal cervical spine. Dictated by: Nisha Lopez M.D. on 05/07/2018 at 17:15 Approved by: Nisha Lopez M.D. on 05/07/2018 at 17:16
== END ==
PROVIDERS: Family Provider Family Medicine; PCP Family Medicine; Visit Provider Family Medicine
DX: M54.2 Cervicalgia (principal)
CPT/HCPCS: 72040

== ENCOUNTER → 2018-05-22 07:38 | Outpatient (CLI) | payer OTHER, SELFPAY ==
--- NOTE | 2018-05-22 | DI.MRI.S_ITS ---
PROCEDURE: MR CERVICAL SPINE WO CON INDICATIONS: NECK PAIN TECHNIQUE: Noncontrast sagittal T1 spin echo and T2 fast spin echo, sagittal STIR, foraminal oblique sagittal T2 fast spin echo, and axial gradient echo or T2 fast spin echo through the cervical spine. COMPARISON: [facility], CR, XR CERVICAL SPINE 2V OR 3V, 05/07/2018, 17:07. FINDINGS: Image quality: Excellent. Alignment and Curvature: There is normal bony alignment. Bone Marrow: Marrow demonstrates normal overall signal. Mild reactive signal within the endplates adjacent to the C4-C5, C5-C6, and C6-C7 intervertebral discs. Spinal Cord: Visualized spinal cord has normal size and signal. No cerebellar tonsillar herniation. Paraspinous Soft Tissues: No paravertebral masses. Prevertebral soft tissues are normal in thickness. C2-C3: Normal appearance. C3-C4: Mild disc desiccation. Mild bilateral facet hypertrophy. Mild foraminal stenosis bilaterally. No canal stenosis. C4-C5: Mild disc desiccation and diffuse disc bulge. Mild bilateral facet hypertrophy. Mild canal stenosis. Mild bilateral foraminal stenosis. C5-C6: Mild disc desiccation and diffuse disc bulge. Mild bilateral facet hypertrophy. Mild canal stenosis. Mild bilateral foraminal stenosis. C6-C7: Mild disco loss and desiccation. Moderate diffuse disc bulge. Mild bilateral facet and uncovertebral hypertrophy. Moderate canal stenosis. Moderate bilateral foraminal stenosis. C7-T1: Disc desiccation. No significant canal, nor foraminal stenosis. IMPRESSION: 1. Multilevel degenerative disc and facet disease. 2. Multilevel canal stenoses, worst at C6-C7, where there is moderate canal stenosis present. 3. Multilevel foraminal stenoses, worst at C6-C7, where there are moderate foraminal stenoses bilaterally. Dictated by: Lobo Haley M.D. on 05/22/2018 at 9:01 Approved by: Lobo Haley M.D. on 05/22/2018 at 9:04
== END ==
PROVIDERS: Family Provider Family Medicine; PCP Family Medicine; Visit Provider Family Medicine
DX: M50.31 Other cervical disc degeneration, high cervical region (principal); M48.02 Spinal stenosis, cervical region
CPT/HCPCS: 72141

== ENCOUNTER → 2018-10-02 08:10 | Outpatient (CLI) | payer OTHER, SELFPAY ==
--- NOTE | 2018-10-02 08:11 | DI.RAD.S_ITS ---
PROCEDURE: XR SHOULDER RT MIN 2V INDICATIONS: Right shoulder impingement TECHNIQUE: 3 views of the shoulder were acquired. COMPARISON: None. FINDINGS: Bones: No fractures or dislocations. No suspicious bony lesions. There is mild acromioclavicular and glenohumeral joint degeneration. Visualized ribs appear intact. Soft tissues: No suspicious soft tissue calcifications. 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 Dictated by: Eber Lucas M.D. on 10/02/2018 at 15:29 Approved by: Eber Lucas M.D. on 10/02/2018 at 15:30
== END ==
PROVIDERS: PCP Family Medicine; Visit Provider Physical Medicine & Rehabilitation
DX: M19.011 Primary osteoarthritis, right shoulder (principal); M25.511 Pain in right shoulder; G89.29 Other chronic pain
CPT/HCPCS: 73030

== ENCOUNTER → 2018-12-14 13:41 | Outpatient (CLI) | payer OTHER, SELFPAY ==
--- NOTE | 2018-12-14 14:00 | DI.MRI.S_ITS ---
PROCEDURE: MR HEAD/BRAIN WO/W CON INDICATIONS: Trigeminal neuralgia TECHNIQUE: Noncontrast sagittal T1 spin echo, axial T2 fast spin echo, axial FLAIR, axial gradient echo, axial diffusion and ADC through the brain. Axial/sagittal/coronal 3-D CISS, thin-slice axial T1 spin echo with fat saturation through the skull base. After the administration of contrast, axial and coronal thin-slice T1 spin echo with fat saturation through the skull base, axial T1 spin echo with fat saturation through the brain. COMPARISON: None. FINDINGS: Image quality: Excellent. Trigeminal nerves: Cisternal segments of the trigeminal nerves are normal bilaterally. No abnormal signal, abnormal postcontrast enhancement or mass identified along the course of the trigeminal nerve divisions. CSF spaces: Ventricles are normal in size and shape. No extra-axial fluid collections. Basal cisterns are patent. Brain: No intracranial bleeds or mass effects. No abnormal intracranial enhancement. Diffusion weighted images show no acute ischemic insults. Tompkins-white matter interface is intact. Brainstem is normal. Normal intravascular flow voids are present. Skull and face: Calvarial marrow signal is normal. Orbits appear normal. Sinuses: Severe mucosal thickening noted in the maxillary sinuses bilaterally. Mild mucosal thickening noted in the ethmoid air cells bilaterally, the sphenoid sinuses bilaterally frontal sinuses bilaterally. mastoids appear clear. IMPRESSION: 1. No intracranial disease process. 2. No trigeminal nerve are trigeminal nerve division abnormality identified. 3. Pansinusitis with severe bilateral maxillary sinusitis. Dictated by: Luz Maria Sinclair MD, PhD on 12/14/2018 at 15:00 Approved by: Luz Maria Sinclair MD, PhD on 12/14/2018 at 15:09
== END ==
PROVIDERS: PCP Family Medicine; Visit Provider Family Medicine
DX: G50.0 Trigeminal neuralgia (principal); J32.4 Chronic pansinusitis
CPT/HCPCS: 70553; A9579

== ENCOUNTER → 2019-03-01 08:32 | Outpatient (CLI) | payer OTHER, SELFPAY ==
--- NOTE | 2019-03-01 08:50 | DI.CT.S_ITS ---
PROCEDURE: CT SINUS SCREEN WO CON INDICATIONS: Chronic maxillary sinusitis TECHNIQUE: Noncontrast 3.0 mm axial images acquired from the frontal sinuses to the mid-sella, with coronal and sagittal reformats. For radiation dose reduction, the following was used: automated exposure control, adjustment of mA and/or kV according to patient size. COMPARISON: None. FINDINGS: Image quality: Excellent. Mild to moderate mucosal thickening noted in the maxillary sinuses bilaterally. Small mucous retention cyst versus polyps noted in the maxillary sinuses. The estimated units are patent bilaterally. No air fluid levels identified. No osseous thickening, osseous remodeling or osseous erosive changes. Nasal septum is deviated to the left. There is a bone spur projecting off the left lateral margin of the nasal septum. Type III cribriform plate is noted. No variance in the ethmoid roof anatomy. The anterior ethmoid artery notches are protected. Type III right frontal recess . Sphenoid sinus pneumatization pattern is sellar complete. Sphenoid intersinus septum attaches to the left carotid osseous canal. IMPRESSION: 1. Mild to moderate bilateral maxillary sinus mucosal thickening. 2. No air-fluid levels. 3. There is paranasal sinus anatomy as described above Dictated by: Luz Maria Sinclair MD, PhD on 03/01/2019 at 11:01 Approved by: Luz Maria Sinclair MD, PhD on 03/01/2019 at 11:26
== END ==
PROVIDERS: PCP Family Medicine; Visit Provider Otolaryngology
DX: J32.0 Chronic maxillary sinusitis (principal); J34.2 Deviated nasal septum
CPT/HCPCS: 70486

== ENCOUNTER → 2019-07-08 10:07 | Outpatient (CLI) | payer OTHER, SELFPAY ==
--- NOTE | 2019-07-08 | DI.NM.S_ITS ---
PROCEDURE: NM ASPEN PERF SPECT REST & STR Rest and exercise myocardial perfusion SPECT with gated imaging and ejection fraction RADIOPHARMACEUTICAL: 11.9 mCi Tc-99m sestamibi IV at rest and 24.0 mCi Tc-99m sestamibi IV at peak exercise. A one day-protocol was performed. INDICATIONS: Chest pain, unspecified TECHNIQUE: Radiopharmaceutical was injected at peak stress test, and also at rest. SPECT images were obtained. SPECT myocardial perfusion images were displayed in short axis, horizontal long axis, and vertical long axis views. Gated images were reviewed using [employer] software. COMPARISON: None. CARDIAC STRESS: A standard Dieudonne treadmill exercise tolerance test was performed by the patient under the supervision of an attending staff. The patient exercised for 10 minutes and 0 seconds; functional aerobic impairment (DUNG) is -20%. Hemodynamic data: There is normal blood pressure and heart rate response to exercise stress. Patient achieved 92% of maximum predicted heart rate at peak exercise. Symptoms: Patient denied chest pain during exercise. EKG: No diagnostic EKG changes of ischemia; no ectopy. FINDINGS: Raw data: There is good myocardial labeling by radiotracer. No significant motion artifacts. Wahy-bh-yiajn ratio is 0.32 (normal is less than 0.38 for sestamibi tracer, and less than 0.50 for thallium tracer). Left ventricle function: Gated images demonstrate normal left ventricle wall thickening. No segmental wall motion abnormality. No transient ischemic dilation; TID is 0.81 (normal less than 1.3). The left ventricle resting end-diastolic volume is 114 mL. Left ventricle stress ejection fraction is 66%; normal values are above 45%. Myocardial perfusion: There is normal distribution of activity in the left and right ventricular myocardium. No fixed or reversible perfusion defects. IMPRESSION: Low risk, normal treadmill nuclear stress test. 1) No perfusion evidence of ischemia or infarction. 2) Normal left ventricular size, wall motion, and systolic function (EF post stress 66%). 3) No ECG evidence of ischemia. 4) No angina during the study. 5) Good exercise tolerance (12.8 METs, DUNG -20%). Target heart rate achieved. Appropriate BP response to exercise. 6) Compared to the prior nuclear stress test done 12/02/2009, no significant change. Dictated by: Teresa Doll MD on 07/08/2019 at 17:08 Approved by: Teresa Doll MD on 07/08/2019 at 17:10
--- NOTE | 2019-07-08 15:49 | PM.TREADMILL ---
Cardiac Stress Test Report Referral & Results Date Patient Seen: 07/08/19 Time Patient Seen: 15:49 Requesting provider: Kirk Coppola Indication: chest pain Rest ECG: sinus rhythm Procedure Note: Standard Dieudonne procotol, 10:00, 10.7 METS Very Good exercise capacity, DUNG -20% No chest pain or anginal symptoms Normal hemodynamic response to exercise No ECG changes with exercise, no st changes; no ectopy Impression: normal exercise stress test Please note: Actual ECG tracings can be found in the PACS system.
== END ==
PROVIDERS: PCP Family Medicine; Referring Provider Family Medicine; Visit Provider Family Medicine
DX: R07.9 Chest pain, unspecified (principal)
CPT/HCPCS: 78452; 93017; A9502

== ENCOUNTER 2019-09-07 08:58 | Emergency (ER) | payer OTHER, SELFPAY ==
[2019-09-07] VITALS (12 sets, daily range): BP systolic 123–178; BP diastolic 56–87; PULSE 54–70; RESP 14–18; TEMP 36.6; O2SAT 98–100; BMI 22.1
--- NOTE | 2019-09-07 09:18 | ED.MALEGU ---
HPI - Male Genitourinary General Chief complaint: Urogenital-Male Stated complaint: terrible pains in back, suspects kidneys Time Seen by Provider: 09/07/19 09:07 Source: patient Mode of arrival: Family Vehicle Limitations: no limitations History of Present Illness HPI Narrative: CC: Left back flank pain HPI: The patient is a 64-year-old male who presents to the emergency department with significant left back pain and flank pain. He is writhing and moving about as though this is a kidney stone. The pain started this morning at approximately 7:00 a.m.. It started as a cramp and just got steadily progressively worse suddenly. The pain feels as though it is over the area of his kidney. He has never before had a kidney stone but has had kidney problems. The pain does radiate anteriorly toward his groin. There is no numbness or tingling or shooting pain down his left leg. He did not fall or injure himself recently. He has had minor back pain but no major back pain. The pain and discomfort is 5/10 in intensity but is very uncomfortable. He denies any weakness or his legs giving out. He has had no fever chills or sweats no headache no chest pain cough shortness of breath racing of his heart no other abdominal pain nausea vomiting diarrhea no urinary tract infection no dysuria or hematuria.. Related Data Home Medications Medication Instructions Recorded Confirmed ASPIRIN (#ASPIR 81) 81 mg PO Q DAY #0 04/08/11 CA PANTOTHENATE/FOLIC ACID/VIT 1 tab PO Q DAY #0 04/08/11 (MULTIVITAMIN) B-12 PO DAILY 09/26/18 09/26/18 atorvastatin 20 mg tablet 20 mg PO DAILY 09/26/18 09/26/18 cholecalciferol (vitamin D3) 50 2,000 unit PO DAILY 09/26/18 09/26/18 mcg (2,000 unit) capsule vitamin B complex 1 tab PO DAILY 09/26/18 09/26/18 Previous Rx's Medication Instructions Recorded cyclobenzaprine 10 mg PO TIDP #15 tab 07/06/16 zoster vaccine live (PF) [Zostavax 0.5 ml SQ SEE INSTRUCTIONS #1 dose 08/24/16 (PF)] sildenafil (pulm.hypertension) 0 PO SEE INSTRUCTIONS #60 tab 12/13/16 [Revatio] insulin aspart U-100 [Novolog 0 unit SQ SEE INSTRUCTIONS #2 vial 02/22/17 U-100 Insulin aspart] simvastatin 20 mg PO HS #90 tab 03/10/17 insulin glargine [Lantus U-100 0 SQ HS #1 vial 05/01/17 Insulin] [CONTOUR NEXT TEST ST] strip SEE INSTRUCTIONS #300 05/11/17 insulin syringe-needle U-100 0.3 #100 each 09/12/17 mL 31 gauge x 07/19 gabapentin 300 mg capsule 300 mg PO TID #90 cap 09/26/18 hydrocodone-acetaminophen [[place]] 1 tab PO Q4-6H PRN #12 tab 09/07/19 ondansetron HCl [Zofran] 4 mg PO Q6H PRN #14 tab 09/07/19 Allergies Allergy/AdvReac Type Severity Reaction Status Date / Time Penicillins [PENICILLINS] Allergy Severe HIVES Unverified 09/26/18 15:52 venom-honey bee Allergy Severe SEVERE Unverified 09/26/18 15:52 [BEE VENOM (HONEY BEE)] EDEMA Review of Systems Review of Systems Narrative: His review of systems were all negative except for those mentioned in the history of present illness Patient History Family History Brother Prostate cancer Dementia Father Alcoholism Social History Smoking Status: Never smoker Smoking Status: Never smoker alcohol intake frequency: a few times a week Substance Use Type: does not use Exam Narrative Exam Narrative: PHYSICAL EXAM: CONSTITUTIONAL: Awake, Alert, Oriented, Coherent, Cooperative in moderate distress writhing about. He has difficulty sitting up in rolled over to allow his back to be examined. HEAD: AT/NC EENT: PERRL, FROM of eyes, NECK: Supple, no obvious JVD, Trachea is midline without stridor, no palpable LN. SPINE: Palpation of the cervical, Thoracic, Lumbar or Sacral spine reveals no gross deformity or tenderness. No CVA tenderness. deep palpation left flank and adjacent LCVA is tender. There is no tenderness to palpation over the sacroiliac joints or sciatic notch. THORAX: No deformity, retractions, chest wall tenderness. LUNGS: Clear, symmetrical breath sounds without respiratory distress. HEART: Normal heart tones, regular rhythm and rate without murmur. ABDOMEN: Soft, non-tender, no guarding, rebound, rigidity or palpable mass. EXTREMITIES: No edema, deformity, tenderness or cyanosis. SKIN: No rash, bruising, NEURO: Awake, alert, oriented, conversive, cranial nerves II-XII are symmetrical , moves all 4 extremities and is ambulatory. Initial Vital Signs Initial Vital Signs: Vital Signs Temperature 97.8 F 09/07/19 09:04 Pulse Rate 56 L 09/07/19 09:04 Respiratory Rate 18 09/07/19 09:04 Blood Pressure 132/87 09/07/19 09:04 Pulse Oximetry 99 09/07/19 09:04 Course Course Course Narrative: 1121: The patient is feeling much better his pain and discomfort has significantly improved. CT scan of his abdomen revealed: 1. A 3 mm stone his either completely passed through the UVJ into the bladder or is about to pass completely into the bladder. It results in a mild left hydroureter and hydronephrosis. 2. Mild diffuse bladder wall thickening. 3. Coronary artery disease and aortic iliac atherosclerotic disease. The plan is to discharge the patient home. 1131: I was explaining the discharge instructions to the patient when he stated that he still has pain but the cramping has significantly improved. He states that he is more nauseous now than he was earlier. I informed him that the stone appears to be at the ureteropelvic junction and that it is ready to pass. He will be discharged with [place] 5/325 1-2 tablets every 4-6 hours as needed for pain and discomfort and Zofran ODT 4 mg 1-2 tablets every 6 hours for nausea and vomiting. If he develops fever, intolerable pain, persistent uncontrolled nausea and vomiting he will return to the emergency department. He understood these instructions. He is still symptomatic and has not yet passed the stone completely. Orders Ordered: Discontinued Medications Ketorolac Tromethamine (Toradol) 30 mg IV NOW ONE Stop: 09/07/19 10:07 Last Admin: 09/07/19 10:09 Dose: 30 mg Documented by: AMERICO Morphine Sulfate (Morphine) 4 mg IV NOW ONE Stop: 09/07/19 09:17 Last Admin: 09/07/19 09:23 Dose: 4 mg Documented by: AMERICO Morphine Sulfate (Morphine) 4 mg IV NOW ONE Stop: 09/07/19 11:33 Last Admin: 09/07/19 12:04 Dose: 4 mg Documented by: BROOKE Ondansetron HCl (Zofran) 4 mg IV NOW ONE Stop: 09/07/19 09:17 Last Admin: 09/07/19 09:23 Dose: 4 mg Documented by: AMERICO Ondansetron HCl (Zofran) 4 mg IV NOW ONE Stop: 09/07/19 11:33 Last Admin: 09/07/19 11:59 Dose: 4 mg Documented by: BROOKE Vital Signs Vital signs: Vital Signs - 8 hr 09/07/19 09:04 09/07/19 09:35 09/07/19 09:37 Temperature 97.8 F Pulse Rate 58 L 61 66 Respiratory Rate 18 Blood Pressure 132/87 151/80 H Pulse Oximetry 99 99 99 09/07/19 10:00 09/07/19 10:01 09/07/19 10:15 Temperature Pulse Rate 67 67 54 L Respiratory Rate Blood Pressure 178/81 H 154/70 H Pulse Oximetry 100 100 99 09/07/19 10:30 09/07/19 11:00 09/07/19 11:06 Temperature Pulse Rate 55 L Respiratory Rate 14 Blood Pressure 123/56 L 140/68 Pulse Oximetry 100 MDM - Male Genitourinary Lab Data Result diagrams: 09/07/19 09:10 09/07/19 09:10 Labs: Lab Results 09/07/19 09/07/19 09/07/19 Range/Units 09:10 09:10 09:25 WBC 4.7 (4.5-11.0) X10^3/uL RBC 5.10 (4.5-5.9) X10^6/uL Hgb 15.8 (13.5-17.5) g/dL Hct 45.5 (41-53) % MCV 89.2 (80-100) fL MCH 31.1 (26-34) PG MCHC 34.8 (30-36) % RDW 13.2 (11.6-14.8) % Plt Count 203 (150-400) X10^3/uL Neut % (Auto) 44.2 L (50-75) % Lymph % (Auto) 44.1 H (25-40) % [place] % (Auto) 8.7 (3-14) % Eos % (Auto) 2.5 (2-4) % Baso % (Auto) 0.5 (0-2) % Neut # (Auto) 2100 (3523-4464) /uL Lymph # (Auto) 2100 (8167-2356) /uL [place] # (Auto) 400 (0-900) /uL Eos # (Auto) 100 (0-450) /uL Baso # (Auto) 0 (0-100) /uL Sodium 138 (137-145) mmol/L Potassium 4.6 (3.4-5.1) mmol/L Chloride 102 (98-107) mmol/L Carbon Dioxide 30 (22-32) mmol/L BUN 26 H (9-20) mg/dL Creatinine 0.94 (0.66-1.25) mg/dL Estimated GFR > 60.0 (>60) mL/min BUN/Creatinine Ratio 27.7 H (6-22) Glucose 195 H (80-110) mg/dL Calcium 9.3 (8.4-10.2) mg/dL Total Bilirubin 0.7 (0.2-1.3) mg/dL AST 38 (17-59) IU/L ALT 39 (<50) IU/L Alkaline Phosphatase 72 (38-126) U/L Total Protein 7.2 (6.3-8.2) g/dL Albumin 4.3 (3.5-5.0) g/dL Globulin 2.9 (1.7-4.1) g/dL Albumin/Globulin Ratio 1.5 (1.0-2.8) Urine RBC 0-1/hpf (0-5/HPF) Urine WBC None seen (0-5/HPF) Urine Bacteria Occasional (0-1) (None) Hyaline Casts 0-1/lpf (None) Urine Mucus 1+ H (Negative) Ur Culture Indicated? Cult not indicated Urine Dip Bedside Urine Glucose Negative Bedside Urine Bilirubin - Negative Bedside Urine Ketone +/- 5 Urine Specific [place] 1.020 Bedside Urine Occult Blood +/- Bedside Urine pH 5.5 Bedside Urine Protein +/- 15 Bedside Urine Urobilinogen - Negative Bedside Urine Nitrite - Negative Bedside Urine Leukocytes - Negative Esterase Discharge Plan Departure Patient Disposition: Home Clinical Impression: Acute left flank pain, Ureterolithiasis, Ureter colic Low back pain Qualifiers: Chronicity: acute Back pain laterality: left Sciatica presence: without sciatica Qualified Code(s): M54.5 - Low back pain Hydronephrosis Qualifiers: Hydronephrosis type: with ureteropelvic junction obstruction Qualified Code(s): Q62.11 - Congenital occlusion of ureteropelvic junction Discharge Date/Time: 09/07/19 12:12 Instructions: DI for Kidney Stones Activity Restrictions/Additional Instructions: 1. Follow-up with your primary care physician. 2. Return to the emergency department if you develop worsening recurrent pain and discomfort. If your ureter is obstructed you will developed severe pain and discomfort. When you are not obstructed your pain has resolved. The CT scan shows the stone at the area of the UPJ. it looks like you have either passed the stone or it is about to pass. 3. You need to return if you develop fever chills sweats or persistent nausea and vomiting. 4. Take the [place] 5/325 1-2 tablets every 4-6 hours as needed for pain and discomfort. Take the Zofran 4 mg ODT 1-2 tablets every 6 hours as needed for nausea and vomiting. Prescriptions: New hydrocodone-acetaminophen [[place]] 5-325 mg tablet 1 tab PO Q4-6H PRN (Reason: pain) Qty: 12 RF: 0 ondansetron HCl [Zofran] 4 mg tablet 4 mg PO Q6H PRN (Reason: nausea and vomiting) Qty: 14 RF: 0 No Action ASPIRIN (#ASPIR 81) 81 mg PO Q DAY Qty: 0 RF: 0 CA PANTOTHENATE/FOLIC ACID/VIT (MULTIVITAMIN) 1 tab PO Q DAY Qty: 0 RF: 0 cyclobenzaprine 10 MG tablet 10 mg PO TIDP Qty: 15 RF: 2 zoster vaccine live (PF) [Zostavax (PF)] 19,400 UNIT/0.65 ML suspension for reconstitution 0.5 ml SQ SEE INSTRUCTIONS Qty: 1 RF: 0 sildenafil (pulm.hypertension) [Revatio] 20 MG tablet 0 PO SEE INSTRUCTIONS Qty: 60 RF: 3 insulin aspart U-100 [Novolog U-100 Insulin aspart] 100 UNIT/1 ML solution 0 unit SQ SEE INSTRUCTIONS Qty: 2 RF: 11 simvastatin 20 MG tablet 20 mg PO HS Qty: 90 RF: 3 insulin glargine [Lantus U-100 Insulin] 100 UNIT/1 ML solution 0 SQ HS Qty: 1 RF: 11 [CONTOUR NEXT TEST ST] SEE INSTRUCTIONS Qty: 300 RF: 6 (DME) insulin syringe-needle U-100 [BD Insulin Syringe Ultra-Fine] 0.3 mL 31 gauge x 5/16 syringe See Dose Instructions .ROUTE .MEDSUPPLY Qty: 100 RF: 3 atorvastatin 20 mg tablet 20 mg PO DAILY RF: 0 cholecalciferol (vitamin D3) 2,000 unit capsule 2,000 unit PO DAILY RF: 0 vitamin B complex [B Complex 1] tablet 1 tab PO DAILY RF: 0 B-12 PO DAILY RF: 0 gabapentin 300 mg capsule 300 mg PO TID Qty: 90 RF: 2 Referrals: Kirk Coppola MD [Primary Care Provider] -
[2019-09-07 09:23] LABS: Add Manual Diff / Slide Review NO; Basophils Absolute Auto 0 /uL (0-100); Basophils Percent Auto 0.5 % (0-2); Eosinophils Absolute Auto 100 /uL (0-450); Eosinophils Percent Auto 2.5 % (2-4); Hematocrit 45.5 % (41-53); Hemoglobin 15.8 g/dL (13.5-17.5); Lymphocytes Absolute Auto 2100 /uL (1100-4500); Lymphocytes Percent Auto 44.1 % (25-40); Mean Corpuscular HGB Conc 34.8 % (30-36); Mean Corpuscular Hemoglobin 31.1 PG (26-34); Mean Corpuscular Volume 89.2 fL (80-100); Monocytes Absolute Auto 400 /uL (0-900); Monocytes Percent Auto 8.7 % (3-14); Neutrophils Absolute Auto 2100 /uL (1500-7000); Neutrophils Percent Auto 44.2 % (50-75); Platelet Count 203 X10^3/uL (150-400); Red Cell Distribution Width 13.2 % (11.6-14.8); White Blood Cell Count 4.7 X10^3/uL (4.5-11.0)
[2019-09-07] MEDS: MORPHINE 4 MG/ML INJ IV ×2 (09:23→12:04)
[2019-09-07] MEDS: ONDANSETRON 4 MG/2 ML INJ IV ×2 (09:23→11:59)
[2019-09-07 09:29] LABS: Alanine Aminotransferase 39 IU/L (<50); Albumin 4.3 g/dL (3.5-5.0); Albumin Globulin Ratio 1.5 (1.0-2.8); Alkaline Phosphatase 72 U/L (38-126); Aspartate Aminotransferase 38 IU/L (17-59); BUN Creatinine Ratio 27.7 (6-22); Bilirubin Total 0.7 mg/dL (0.2-1.3); Blood Urea Nitrogen 26 mg/dL (9-20); Calcium 9.3 mg/dL (8.4-10.2); Carbon Dioxide 30 mmol/L (22-32); Chloride 102 mmol/L (98-107); Estimated Glomerular Filt Rate > 60.0 mL/min (>60); Globulin 2.9 g/dL (1.7-4.1); Glucose 195 mg/dL (80-110); HEMOLYSIS 31 (0-50); Potassium 4.6 mmol/L (3.4-5.1); Sodium 138 mmol/L (137-145); Total Protein 7.2 g/dL (6.3-8.2)
[2019-09-07 09:32] LABS: WBC Urine None Seen (0-5/HPF)
--- NOTE | 2019-09-07 09:37 | DI.CT.S_ITS ---
PROCEDURE: CT ABDOMEN PELVIS WO CON INDICATIONS: left back and flank pain TECHNIQUE: Noncontrast 5 mm thick sections acquired from the diaphragms to the symphysis. 5 mm coronal and sagittal reformats were then performed. For radiation dose reduction, the following was used: automated exposure control, adjustment of mA and/or kV according to patient size. COMPARISON: None. FINDINGS: Image quality: Excellent. ABDOMEN: Lung bases: Lung bases are clear. Heart size is normal. Coronary artery calcifications. Solid organs: Liver is normal in size. Gallbladder is unremarkable.. Pancreas is normal in contours. Spleen is normal in size. No adrenal nodules. Right kidney: No stone or hydronephrosis. Right ureter: Unremarkable. Left kidney: Mild hydronephrosis. No stone. Left ureter: Mildly dilated to the base of the bladder. Bladder: Mild diffuse bladder wall thickening, partially decompressed. A 3 mm stone in the left base of the bladder either represents a stone that is about to completely pass through the left ureter into the bladder or a recently passed stone. Peritoneum and bowel: Unenhanced bowel loops demonstrate normal wall thickness and caliber. No free fluid or air. Nodes and vessels: No retroperitoneal or mesenteric adenopathy by size criteria. Aorta and inferior vena cava are normal in caliber. Aortic and iliac atherosclerotic calcifications. Miscellaneous: No ventral hernias. PELVIS: Genitourinary: Mild diffuse bladder wall thickening, partially decompressed. A 3 mm stone in the left base of the bladder either represents a stone that is about to completely pass through the left ureter into the bladder or a recently passed stone. Miscellaneous: No inguinal hernias or adenopathy. Bones: No suspicious bony lesions. No vertebral body compression fractures. IMPRESSION: 1. A 3 mm stone has either completely passed through the UVJ into the bladder or is about to pass completely into the bladder. It results in mild left hydroureter and hydronephrosis. 2. Mild diffuse bladder wall thickening. 3. Coronary artery disease and aortic iliac atherosclerotic disease. Dictated by: Kermit Weldon M.D. on 09/07/2019 at 8:46 Approved by: Kermit Weldon M.D. on 09/07/2019 at 8:51
[2019-09-07 09:42] LABS: Bacteria Urine Occasional (0-1); Culture Indicated Urine Cult Not Indicated; Hyaline Casts Urine 0-1/LPF; Mucus Urine 1+ (Negative); RBC Urine 0-1/HPF (0-5/HPF)
[2019-09-07] MEDS: KETOROLAC 60 MG/2 ML VIAL 30 MG IV (10:09)
== END 2019-09-07 12:12 | disposition home or self-care (01) ==
PROVIDERS: Emergency Provider Emergency Medicine; PCP Family Medicine
DX: M54.5 Low back pain (principal); Q62.11 Congenital occlusion of ureteropelvic junction; N20.1 Calculus of ureter; Z87.442 Personal history of urinary calculi; N23 Unspecified renal colic
CPT/HCPCS: 36415; 74176; 80053; 81003; 81015; 85025; 96374; 96375; 96376; 99284; J1885; J2270; J2405

== ENCOUNTER → 2019-09-24 08:43 | Outpatient (CLI) | payer OTHER, SELFPAY ==
[2019-09-25 23:17] LABS: COVID19 Sendout Not Detected (Not Detect)
== END ==
PROVIDERS: PCP Family Medicine; Visit Provider Physician Assistant
DX: Z01.812 Encounter for preprocedural laboratory examination (principal)
CPT/HCPCS: 87635

== ENCOUNTER 2019-09-27 14:11 | Day surgery (SDC) | payer OTHER, SELFPAY ==
[2019-09-27] VITALS (17 sets, daily range): BP systolic 88–125; BP diastolic 38–73; PULSE 52–86; RESP 7–21; TEMP 36.2–36.7; O2SAT 95–100; BMI 22.8
--- NOTE | 2019-09-27 | PATH_ITS ---
[facility] Accession Number: [id number] . 01 Material submitted: . rectum - RECTAL SUPERFICIAL HYPER EMESIS . 01 Clinical history: . SDC . 02 Diagnosis: Rectum, Superficial Hyperemia, Biopsy: Hyperplastic polyp. MRV 10/01/2019 1118 Local . 02 Electronically signed: . Kayla Mesa MD, Pathologist NPI- [id number] . 01 Gross description: . RECTAL SUPERFICIAL HYPER EMESIS: Received in formalin is 1 fragment(s) of goodwin, soft tissue measuring 0.3 x 0.3 x 0.3 cm submitted entirely in 1 cassette(s) /QBJ 09/28/2019 0851 Local . 02 Pathologist provided ICD-10: K62.1 . 02 CPT . 144409 Performed at: 01 [facility] [address] [id number] MD Campbell Birmingham MD Phone: [phone] Performed at: 02 [facility] [id number] [place] [id number] MD Kayla Mesa MD Phone: [phone]
--- NOTE | 2019-09-27 12:10 | P.HP_ITS ---
History of Present Illness History of Present Illness Date Patient Seen: 09/27/19 Time Patient Seen: 14:41 Chief complaint: SDC Narrative: 64 year old male comes in today for consideration of a screening colonoscopy. Last colonoscopy on 02/19/2009, reportedly normal. There have been no lower GI symptoms suggesting disease such as change in bowel habits, bleeding, abdominal pain or anemia. Denies a family history of colon cancer colon polyps. Overall health issues have been stable, including no major cardiac events for at least 6 weeks. PCP: Dr. Coppola Past medical history: Anxiety Paroxysmal atrial tachycardia Chronic sinusitis Trigeminal neuralgia Rotator cuff syndrome right For back pain Erectile dysfunction Diabetes mellitus type 1 Hyperlipidemia Numbness and tingling in right arm Past surgical history: Colonoscopy, 2008 Family history: Noncontributory Social history: Nonsmoker, 3-4 alcoholic drinks per week. Patient History Family & Social History Family History Brother Prostate cancer Dementia Father Alcoholism Tobacco & Substance use: Smoking Status Never smoker alcohol intake frequency a few times a week Substance Use Type does not use Meds Home Medications and Allergies Home Medications Medication Instructions Recorded Confirmed Type ASPIRIN (#ASPIR 81) 81 mg PO Q DAY #0 04/08/11 History CA PANTOTHENATE/FOLIC ACID/VIT 1 tab PO Q DAY #0 04/08/11 History (MULTIVITAMIN) cyclobenzaprine 10 mg PO TIDP #15 tab 07/06/16 Rx zoster vaccine live (PF) [Zostavax 0.5 ml SQ SEE INSTRUCTIONS #1 dose 08/24/16 Rx (PF)] sildenafil (pulm.hypertension) 0 PO SEE INSTRUCTIONS #60 tab 12/13/16 Rx [Revatio] insulin aspart U-100 [Novolog 0 unit SQ SEE INSTRUCTIONS #2 vial 02/22/17 Rx U-100 Insulin aspart] simvastatin 20 mg PO HS #90 tab 03/10/17 Rx insulin glargine [Lantus U-100 0 SQ HS #1 vial 05/01/17 Rx Insulin] [CONTOUR NEXT TEST ST] strip SEE INSTRUCTIONS #300 05/11/17 Rx insulin syringe-needle U-100 0.3 #100 each 09/12/17 Rx mL 31 gauge x 5/16 B-12 PO DAILY 09/26/18 09/26/18 History atorvastatin 20 mg tablet 20 mg PO DAILY 09/26/18 09/26/18 History cholecalciferol (vitamin D3) 50 2,000 unit PO DAILY 09/26/18 09/26/18 History mcg (2,000 unit) capsule gabapentin 300 mg capsule 300 mg PO TID #90 cap 09/26/18 Rx vitamin B complex 1 tab PO DAILY 09/26/18 09/26/18 History hydrocodone-acetaminophen [[place]] 1 tab PO Q4-6H PRN #12 tab 09/07/19 Rx ondansetron HCl [Zofran] 4 mg PO Q6H PRN #14 tab 09/07/19 Rx Allergies Allergy/AdvReac Type Severity Reaction Status Date / Time Penicillins [PENICILLINS] Allergy Severe HIVES Verified 09/27/19 14:43 venom-honey bee Allergy Severe SEVERE Verified 09/27/19 14:43 [BEE VENOM (HONEY BEE)] EDEMA Review of Systems Review of Systems ROS: Yes All systems reviewed with the patient and are negative except as otherwise documented Exam Narrative Exam Narrative: GENERAL: Alert and oriented, appearing stated age and in no acute distress. HEENT: Head normocephalic/atraumatic. Pupils equal, round, and reactive to light and accomodation. Extraocular muscles intact. Tympanic membranes clear. Nasal mucosa moist, septum midline. Oral mucosa moist, no lesions. Neck soft and supple, no lymphadenopathy. LUNGS: Clear to ausculation bilaterally, no wheezes, rhonchi or rales. CV: Normal S1 and S2 with regular rate and rhythm, no audible murmurs, rubs or gallops. ABDOMEN: Soft, non-tender, non-distended, no organomegaly. Positive bowel sounds. EXTREMITIES: No clubbing, cyanosis, or edema. NEURO: Cranial nerves II through XII grossly intact, no focal deficits. PSYCH: Alert and oriented x 3. SKIN: No concerning lesions. Assessment & Plan Assessment & Plan narrative: 1. Screening for colon cancer Plan for colonoscopy. The nature and character of the procedure as well as anticipated results were discussed. The possibility of not completing the procedure was also discussed. Possible complications including aspiration pneumonia, bleeding, perforation and reaction to medications either for sedation or preparation and missed lesions were discussed. Questions were answered and proceeding to the colonoscopy was elected. Informed consent signed. I sincerely appreciate the referral allowing me to participate in this patient's care. Please contact me with any questions or concerns.
--- NOTE | 2019-09-27 12:16 | PM.OP.ENDO ---
Operative Date/Time/Diagnoses Date of procedure: 09/27/19 Time of procedure: 14:58 Pre-op diagnosis: 1. Screening for colon cancer Post-op diagnosis: other (1. Rectal polyp, 3 mm) Procedure & Clinicians Study performed: Colonoscopy Same procedure as scheduled: Yes Indications: 1. Screening for colon cancer Surgeon: Torrie William Procedure Notes SCOAP/Timeout: 14:57 Procedure in detail: ENDOSCOPIST: Torrie William MD Sedation RN: Joseline Ramirez RN Sedation start time: 14:58 Sedation end time: 15:20 PROCEDURE: Colonoscopy with biopsy INDICATIONS: 1. Screening for colon cancer MEDICATION: Levsin 0.125 mg sublingual, incremental doses of Versed and fentanyl until appropriate level sedation achieved. ASA CLASS: 2 CECAL WITHDRAWAL TIME: 12 minutes COMPLICATIONS: None. EXTENT OF PROCEDURE: Cecum. QUALITY OF PREP: Good with portions of liquid stool. PROCEDURE: Prior to insertion of the colonoscope, a digital rectal examination was accomplished with circumferential palpation of the distal rectal mucosa without significant findings being noted. The high-definition colonoscope was passed into the rectum in the usual fashion and advanced over to the cecum without difficulty. The ileocecal valve, appendiceal stoma, and medial wall all could be inspected and no abnormalities were seen. ASCENDING COLON: As the colonoscope was withdrawn, care was taken to expose and inspect the haustral folds and no abnormalities were seen. HEPATIC FLEXURE: Normal no polyps, diverticula or other abnormalities. TRANSVERSE COLON: Normal no polyps, diverticula or other abnormalities. DESCENDING COLON: Normal no polyps, diverticula or other abnormalities. SIGMOID COLON: Normal no polyps, diverticula or other abnormalities. RECTUM: A 3 mm polypoid mass with superficial hyperemesis seen and removed with cold biopsy forceps. J maneuver was produced. There was no significant perianal disease. The J maneuver was broken. The remainder of the rectum was inspected and there was no external hemorrhoid disease. The scope was withdrawn. IMPRESSION: 1. Rectal polypoid mass, 3 mm, with superficial hyperemesis, removed with cold biopsy forceps PLAN: 1. Follow-up in clinic status post pathology results. The possibility of a missed lesion including a malignancy has been discussed with the patient previously. Potential alarm symptoms have been discussed and should be reported immediately. Complications: none Post-procedure Recommendations: Will call with biopsy results Follow up: weeks (2) Disposition: PACU
[2019-09-27] MEDS: LACTATED RINGERS 1,000 ML 200 ML IV ×2 (14:32→15:50)
[2019-09-27] MEDS: HYOSCYAMINE 0.125 MG TABLET PO (14:34)
[2019-09-27] MEDS: MIDAZOLAM 5 MG/5 ML VIAL IV (15:20)
[2019-09-27] MEDS: fentaNYL 250 MCG/5 ML INJ IV (15:22)
--- NOTE | 2019-09-27 15:30 | SUR.PHASEI ---
Received to PACU after MAC anesthesia. Airway patent, self maintained. Report received from PITO Trevizo. Yulissa on arrival = [phone].
--- NOTE | 2019-09-27 16:18 | SUR.PHASEI ---
Report given to PITO Ball. Will update Dr William in regards VS and status.
--- NOTE | 2019-09-27 16:25 | SUR.PHASEI ---
Assumed care. Patient rousable but very drowsy.
--- NOTE | 2019-09-27 16:27 | SUR.PHASEI ---
Dr. Hunt at bedside. Discussed Bp 89/57, hr in the 50s while sleeping. Patient able to sip fluids. IV fluid, LR, infusing. No new orders.
== END 2019-09-27 16:59 | disposition home or self-care (01) ==
PROVIDERS: PCP Family Medicine; Referring Provider Student in an Organized Health Care Education/Training Program; Visit Provider Student in an Organized Health Care Education/Training Program
PROC: 0DJD8ZZ Inspection of Lower Intestinal Tract, Via Natural or Artificial Opening Endoscopic (ICD-10-PCS; CPT 45378; principal; 2019-09-27 15:15)
DX: Z12.11 Encounter for screening for malignant neoplasm of colon (principal); K62.1 Rectal polyp
CPT/HCPCS: 45380; J2250; J3010

== ENCOUNTER → 2021-04-19 11:02 | Outpatient (CLI) | payer OTHER, SELFPAY ==
[2021-04-19 13:11] LABS: COVID19 -Nasal RAPID Negative (Negative)
== END ==
PROVIDERS: PCP Family Medicine; Visit Provider Family Medicine Sleep Medicine
DX: Z20.822 Contact with and (suspected) exposure to COVID-19 (principal)
CPT/HCPCS: 87635; C9803

== ENCOUNTER 2021-04-20 06:57 | Day surgery (SDC) | payer OTHER, SELFPAY ==
[2021-04-20] MEDS: PROPARACAINE 0.5% OPHTH SOL 2 DROPS EYE-OP (07:40)
[2021-04-20] MEDS: CATARACT EYE COMPOUND (10 DROPS/SYRINGE) 3 DROPS EYE-OP (07:40)
[2021-04-20 07:52] VITALS: BP 122/73; PULSE 83; RESP 16; TEMP 37; O2SAT 98; BMI 22.4
--- NOTE | 2021-04-20 08:25 | P.OP.PRE_ITS ---
Pre-operative Note Interval Note History & Physical reviewed/Exam performed by Physician: Yes Changes to H&P: No Addendum Addendum Note: There are no non surgical alternatives to the patient's condition. Deteriora tion of the patient's condition is expected. Delay may result in more complex future surgery.
--- NOTE | 2021-04-20 08:26 | PM.OP.1 ---
Operative Date/Time/Diagnoses Pre-op diagnosis: Nuclear cataract right eye Procedure & Clinicians Procedure: Cataract Surgery Same procedure as scheduled: Yes Surgeon: Roger Myers Anesthesia Type: MAC +/- and Sedation Operative Notes Procedure in detail: Patient brought to the operating suite. Tetracaine drops placed in the right eye. Patient was prepped and draped in sterile manner. Wire lid speculum was placed in the eye. Betadine drops were placed on the eye. This was irrigated. Lidocaine jelly was placed on the eye. A paracentesis port was created with a side-port blade. 0.1 mL 1% preservative free lidocaine was injected into the anterior chamber. The anterior chamber was deepened with viscoelastic. 2.6 mm keratome was used to create a temporal clear corneal incision. Cystotome and Utrata forceps were used to create continuous tear capsulorrhexis. Balanced salt solution was used to hydro dissect the nucleus. The phacoemulsification handpiece was inserted and the nucleus was removed using the stop and chop technique. The irrigation aspiration handpiece was inserted and the remaining cortex was removed. Anterior chamber was deepened with viscoelastic. An Allen DIB00 intraocular lens with a power of 16.5 was injected into the capsular bag. Irrigation aspiration handpiece was inserted and the remaining viscoelastic was removed. Incision was hydrated with balanced salt solution and found to be leak free with pressure with Weck-Kathya sponges. 0.1 mL Vigamox injected anterior chamber. 0.3 mL Kenalog 10 mg was injected subconjunctivally. Lid speculum was removed. The patient left the operating room in excellent condition. Complications: none Post-operative Condition: stable Disposition: same day surgery
[2021-04-20] MEDS: PHENYLEPHRINE/LIDOCAINE VIAL (OR) 0.2 ML EYE-OP (08:41)
[2021-04-20] MEDS: TRIAMCINOLONE 50 MG/5 ML VIAL INJ (08:41)
[2021-04-20] MEDS: MOXIFLOXACIN INJ 4 MG/0.8 ML VIAL 0.5 MG EYE-OP (08:41)
[2021-04-20] MEDS: HYALURONATE SODIUM 30 MG-10 MG/ML SYRINGES 1 BOX INTRAOCULA (08:41)
[2021-04-20] MEDS: BALANCED SALT IRRIG SOLN NO.2 500 ML, EPINEPHrine 1 MG IRR (08:42)
[2021-04-20] MEDS: TETRACAINE 0.5% OPHTH DROPS 4 ML 2 DROPS EYE-OP (08:42)
[2021-04-20] MEDS: LIDOCAINE 2% (GLYDO) 6 ML GEL TOP (08:43)
[2021-04-20 08:55] VITALS: BP 108/66; PULSE 74; RESP 14; TEMP 36.2; O2SAT 98
[2021-04-20 09:10] VITALS: BP 110/76; PULSE 76; RESP 14; O2SAT 98
== END 2021-04-20 09:20 | disposition home or self-care (01) ==
PROVIDERS: PCP Family Medicine; Referring Provider Ophthalmology; Visit Provider Ophthalmology
PROC: (CPT 66984; principal; 2021-04-20 08:45)
DX: H25.11 Age-related nuclear cataract, right eye (principal); E78.00 Pure hypercholesterolemia, unspecified; E11.9 Type 2 diabetes mellitus without complications; Z79.4 Long term (current) use of insulin
CPT/HCPCS: 66984; J0171; J2250; J3010; J3301

== ENCOUNTER → 2021-05-03 11:53 | Outpatient (CLI) | payer OTHER, SELFPAY ==
[2021-05-03 14:36] LABS: COVID19 -Nasal RAPID Negative (Negative)
== END ==
PROVIDERS: PCP Family Medicine; Referring Provider Family Medicine Sleep Medicine; Visit Provider Family Medicine Sleep Medicine
DX: Z20.822 Contact with and (suspected) exposure to COVID-19 (principal)
CPT/HCPCS: 87635; C9803

== ENCOUNTER 2021-05-04 06:24 | Day surgery (SDC) | payer OTHER, SELFPAY ==
[2021-05-04 06:49] VITALS: BP 116/65; PULSE 70; RESP 18; TEMP 36.1; O2SAT 99; BMI 22.4
[2021-05-04] MEDS: PROPARACAINE 0.5% OPHTH SOL 2 DROPS EYE-OP (06:57)
[2021-05-04] MEDS: CATARACT EYE COMPOUND (10 DROPS/SYRINGE) 3 DROPS EYE-OP (07:02)
--- NOTE | 2021-05-04 07:37 | PM.PREOP ---
Pre-operative Note Interval Note History & Physical reviewed/Exam performed by Physician: Yes Changes to H&P: No
--- NOTE | 2021-05-04 07:37 | PM.OP.1 ---
Operative Date/Time/Diagnoses Pre-op diagnosis: Nuclear Cataract Left eye Post-op diagnosis: same Procedure & Clinicians Same procedure as scheduled: Yes Surgeon: Roger Myers Anesthesia Type: MAC +/- and Sedation Operative Notes Procedure in detail: Patient brought to the operating suite. Tetracaine drops placed in the left eye. Patient was prepped and draped in sterile manner. Wire lid speculum was placed in the eye. Betadine drops were placed on the eye. This was irrigated. Lidocaine jelly was placed on the eye. A paracentesis port was created with a side-port blade. 0.1 mL 1% preservative free lidocaine was injected into the anterior chamber. The anterior chamber was deepened with viscoelastic. 2.6 mm keratome was used to create a temporal clear corneal incision. Cystotome and Utrata forceps were used to create continuous tear capsulorrhexis. Balanced salt solution was used to hydro dissect the nucleus. The phacoemulsification handpiece was inserted and the nucleus was removed using the stop and chop technique. The irrigation aspiration handpiece was inserted and the remaining cortex was removed. Anterior chamber was deepened with viscoelastic. An Allen DIB00 intraocular lens with a power of 14.5 was injected into the capsular bag. Irrigation aspiration handpiece was inserted and the remaining viscoelastic was removed. Incision was hydrated with balanced salt solution and found to be leak free with pressure with Weck-Kathya sponges. 0.1 mL Vigamox injected anterior chamber. 0.3 mL Kenalog 10 mg was injected subconjunctivally. Lid speculum was removed. The patient left the operating room in excellent condition. Complications: none Post-operative Condition: stable Disposition: same day surgery
[2021-05-04] MEDS: PHENYLEPHRINE/LIDOCAINE VIAL (OR) 0.2 ML EYE-OP (08:24)
[2021-05-04] MEDS: HYALURONATE SODIUM 30 MG-10 MG/ML SYRINGES 1 BOX INTRAOCULA (08:24)
[2021-05-04] MEDS: LIDOCAINE 2% (GLYDO) 6 ML GEL TOP (08:25)
[2021-05-04] MEDS: TETRACAINE 0.5% OPHTH DROPS 4 ML 2 DROPS EYE-OP (08:25)
[2021-05-04] MEDS: TRIAMCINOLONE 50 MG/5 ML VIAL INJ (08:25)
[2021-05-04] MEDS: MOXIFLOXACIN INJ 4 MG/0.8 ML VIAL 0.5 MG EYE-OP (08:25)
[2021-05-04] MEDS: BALANCED SALT IRRIG SOLN NO.2 500 ML, EPINEPHrine 1 MG IRR (08:25)
[2021-05-04 08:34] VITALS: BP 105/62; PULSE 71; RESP 16; TEMP 36.4; O2SAT 98
== END 2021-05-04 08:52 | disposition home or self-care (01) ==
PROVIDERS: PCP Family Medicine; Referring Provider Ophthalmology; Visit Provider Ophthalmology
PROC: (CPT 66984; principal; 2021-05-04 07:45)
DX: H25.12 Age-related nuclear cataract, left eye (principal); E11.9 Type 2 diabetes mellitus without complications; Z79.4 Long term (current) use of insulin
CPT/HCPCS: 66984; J0171; J2250; J3301

== ENCOUNTER → 2024-09-09 08:40 | Outpatient (CLI) | payer MEDICARE, OTHER, SELFPAY ==
--- NOTE | 2024-09-09 | DI.US.S_ITS ---
MM diagnostic mammo BI, US breast LT limited: 09/09/2024 BI-RADS: 2 CLINICAL: 69-year old male for bilateral diagnostic mammogram and left diagnostic breast ultrasound. No personal or first-degree family history of breast cancer. The patient reports a palpable abnormality (3 months) and pain (3 months) in the left breast. PRIOR EXAMS No prior examinations available. MAMMOGRAPHY TECHNIQUE: 2D and 3D (tomosynthesis) digital mammographic views obtained, with additional images as needed for full coverage. Current study was also evaluated with a Computer Aided Detection (CAD) system. ULTRASOUND TECHNIQUE Real-time ha scale and color doppler imaging of the area of clinical interest was performed with image documentation. Left targeted breast ultrasound of the area of clinical interest and the axilla was performed with image documentation. DENSITY B. There are scattered areas of fibroglandular density. MAMMOGRAPHY FINDINGS Right: There are no suspicious masses, calcifications, or other findings in the breast. There is mild gynecomastia. Left (finding-1): Central, Retroareolar, Far Anterior depth: There are no suspicious masses, calcifications, or other findings in the breast. Underlying the surface marker, the site of clinical concern by the patient of a palpable lump and pain/tenderness is explained by nodular pattern gynecomastia. ULTRASOUND FINDINGS Left (finding-1): Central, Retroareolar: Correlating with findings on mammogram there is retroareolar fibroglandular tissue consistent with gynecomastia. No abnormal lymph nodes are seen in the axilla. IMPRESSION: * No evidence of malignancy with benign findings. RECOMMENDATIONS * Clinical follow-up is recommended for the patient's gynecomastia with evaluation for possible medication/drug-related, hormonal or systemic etiologies. Further management of palpable abnormalities or other focal signs or symptoms should be based on the results of clinical evaluation. If palpable abnormality or other concerning symptom persists or progresses, further clinical evaluation should be considered. COMMENTS: Findings and recommendations were conveyed to the patient during today's evaluation. OVERALL ASSESSMENT CATEGORY BI-RADS-2: Benign. ELECTRONICALLY SIGNED: Anyi Marin M.D. on 09/09/2024 at 12:58:20 PM PT Interpreting Station ID: [id number]
== END ==
LOC: MAMMO 08:41
PROVIDERS: PCP Family Medicine; Referring Provider Family Medicine; Visit Provider Family Medicine
DX: N62 Hypertrophy of breast (principal)
CPT/HCPCS: 76642; 77066; G0279

== ENCOUNTER → 2025-01-11 07:45 | Outpatient (CLI) | payer MEDICARE, OTHER, SELFPAY ==
[2025-01-11 10:19] LABS: Add Manual Diff / Slide Review NO; Hematocrit 42.1 % (41-53); Hemoglobin 14.8 g/dL (13.5-17.5); Lymphocytes Absolute Auto 1500 /uL (1100-4500); Mean Corpuscular HGB Conc 35.1 % (30-36); Mean Corpuscular Hemoglobin 31.1 PG (26-34); Mean Corpuscular Volume 88.7 fL (80-100); Platelet Count 270 X10^3/uL (150-400)
[2025-01-11 10:24] LABS: Hemoglobin A1C% w Est Avg Glu 6.4 % (4.0-6.0)
[2025-01-11 10:50] LABS: Free T4, Direct Thyroxine 1.08 ng/dL (0.78-2.19)
[2025-01-11 11:04] LABS: Thyroid Stimulating Hormone 2.36 uIU/mL (0.47-4.68)
[2025-01-11 11:20] LABS: Alanine Aminotransferase 17 IU/L (<50); Albumin 3.8 g/dL (3.5-5.0); Albumin Globulin Ratio 1.3 (1.0-2.8); Alkaline Phosphatase 78 U/L (38-126); Blood Urea Nitrogen 18 mg/dL (9-20); Calcium 8.4 mg/dL (8.4-10.2); Carbon Dioxide 26 mmol/L (22-32); Chloride 102 mmol/L (98-107); Cholesterol 133 mg/dL (140-199); Estimated Glomerular Filt Rate > 60 mL/min (>60); Globulin 3.0 g/dL (1.7-4.1); Glucose 134 mg/dL (70-99); HDL Cholesterol 53 mg/dL (40-60); HEMOLYSIS < 15 (0-50); Potassium 4.6 mmol/L (3.4-5.1); Sodium 138 mmol/L (137-145); Total Protein 6.8 g/dL (6.3-8.2); Triglycerides 69 mg/dL (35-150)
[2025-01-11 11:50] LABS: Prostate Specific Antigen 2.39 ng/mL (0.10-4.00)
[2025-01-14 06:36] LABS: PSA, Total 2.3 ng/mL (0.0-4.0)
== END ==
PROVIDERS: PCP Family Medicine; Referring Provider Family Medicine; Visit Provider Family Medicine
DX: Z00.00 Encounter for general adult medical examination without abnormal findings (principal); Z13.0 Encounter for screening for diseases of the blood and blood-forming organs and certain disorders involving the immune mechanism; Z13.29 Encounter for screening for other suspected endocrine disorder; E10.9 Type 1 diabetes mellitus without complications
CPT/HCPCS: 36415; 80053; 80061; 83036; 83721; 84153; 84154; 84439; 84443; 85025